=== PATIENT | female | born 1955 ===

== ENCOUNTER 2019-12-04 06:59 | Outpatient (REF) | payer OTHER, SELFPAY ==
[2019-12-04 11:10] LABS: MANUAL DIFF FLAG NO
[2019-12-04 11:44] LABS: Alanine Aminotransferase 15 U/L (0-31); Albumin Level 4.3 g/dL (3.5-5.0); Alkaline Phosphatase 60 U/L (39-117); Anion Gap 13 (12-20); Aspartate Amino Transferase 19 U/L (5-31); Bilirubin Total 0.6 mg/dL (0.0-1.0); Blood Urea Nitrogen 21 mg/dL (9-16); Carbon Dioxide 29 mmol/L (22-29); Chloride 105 mmol/L (96-108); Cholesterol 255 mg/dL; Estimated Glomerular Filt Rate > 60; Glucose Fasting 90 mg/dL (60-99); HDL Cholesterol 66 mg/dL; LDL Cholesterol Calculated 171 mg/dl; Potassium 4.6 mmol/l (3.3-5.1); Sodium 142 mmol/L (135-145); Total Protein 6.9 g/dL (6.5-8.0); Triglycerides 93 mg/dL
[2019-12-04 11:46] LABS: Basophils Absolute Auto 0.1 X10*3/uL (0.0-0.2); Basophils Percent Auto 1.3 % (0-2); Eosinophils Absolute Auto 0.1 X10*3/uL (0.0-0.4); Eosinophils Percent Auto 2.8 % (0-4); Hematocrit 42.6 % (37-47); Hemoglobin 13.5 g/dl (12.0-16.0); Imm Gran Abs Auto 0.01 X10*3/uL (0.00-0.03); Imm Gran Pct Auto 0.3 % (0.0-0.4); Lymphocytes Absolute Auto 1.7 X10*3/uL (1.2-4.9); Lymphocytes Percent Auto 41.3 % (20-40); Mean Corpuscular HGB Conc 31.7 g/dl (31.0-35.0); Mean Corpuscular Hemoglobin 30.1 pg (27.0-33.0); Mean Corpuscular Volume 94.9 fL (80-98); Mean Platelet Volume 12.3 fL (9.4-12.3); Monocytes Absolute Auto 0.4 X10*3/uL (0.1-1.2); Monocytes Percent Auto 10.3 % (2-11); Neutrophils Absolute Auto 1.8 X10*3/uL (2.0-8.3); Platelet Count 194 X10*3/uL (160-400); Red Blood Count 4.49 X10*6/uL (4.20-5.50); Red Cell Distribution Width 12.1 % (11.0-16.0)
[2019-12-06 04:32] LABS: SARS COV2 IgG Negative (Negative)
== END 2019-12-04 07:00 | disposition home or self-care (01) ==
LOC: HO.HMGCLDS 06:59
PROVIDERS: PCP Internal Medicine; Visit Provider Internal Medicine
DX: Z00.00 Encounter for general adult medical examination without abnormal findings (principal); E03.9 Hypothyroidism, unspecified; K58.9 Irritable bowel syndrome, unspecified; K21.9 Gastro-esophageal reflux disease without esophagitis
CPT/HCPCS: 36415; 80053; 80061; 85025; 86769

== ENCOUNTER 2020-03-27 08:47 | Emergency (ER) | payer OTHER, SELFPAY ==
--- NOTE | ~2020-03-27 | CT_ITS ---
EXAMINATION: CT HEAD WITHOUT CONTRAST CLINICAL INFORMATION: Headache, assess for hemorrhage. COMPARISON: None TECHNIQUE: Contiguous axial imaging was performed from the skull base to vertex without intravenous administration of contrast. Additional 2-D coronal and sagittal reformatted images are generated on the CT workstation and uploaded to PACS. This CT examination was performed using dose optimization techniques as appropriate, variously including the following: *Automated exposure control *Adjustment of mA and/or kV according to patient size (this includes techniques or standardized protocols for targeted exams where dose is matched to indication/reason for exam; i.e. extremities or head) *Use of iterative reconstruction technique DLP: 600 mGy-cm FINDINGS: There is no intracranial hemorrhage, hematoma, or extra-axial fluid collection. The ventricles are normal in size. There is no hydrocephalus, edema, or mass effect. The jhaveri-white matter differentiation appears symmetric. There is no visible acute territorial infarct or mass lesion. The calvarium appears intact. There is no pneumocephalus or orbital emphysema. The visualized sinuses and middle ears and mastoid air cells show no significant mucosal thickening. There are no air-fluid levels. CT/CT head/brain wo con IMPRESSION: No acute intracranial abnormality.
--- NOTE | ~2020-03-27 | XR_ITS ---
EXAMINATION: XR CHEST CLINICAL INFORMATION: Chest wall pain COMPARISON: None TECHNIQUE: Portable upright AP view of the chest was obtained. FINDINGS: The lungs are clear. The vascularity is normal. There is no pneumothorax or pleural reaction or effusion. The heart is normal in size. The hilar and mediastinal contours are unremarkable. There is dextrocurvature midthoracic spine. Otherwise, no visible bony abnormality. XR/XR chest 1V IMPRESSION: Unremarkable examination.
[2020-03-27 08:54] VITALS: BP 210/98; PULSE 76; RESP 18; TEMP 36.5; O2SAT 98; BMI 24.2
--- NOTE | 2020-03-27 09:01 | ED.GENADULT ---
HPI - General Adult General Chief complaint: General Medical Stated complaint: RAPID HEART BEAT Time Seen by Provider: 03/27/20 09:01 Source: patient Mode of arrival: ambulatory Limitations: no limitations History of Present Illness HPI narrative: 64-year-old female with below known past medical history including history of; Anxiety DJD (degenerative joint disease) GERD (gastroesophageal reflux disease) Hypothyroidism IBS (irritable bowel syndrome) Insomnia Mammogram normal Osteoarthritis of knee Postmenopausal bleeding Today, She presents ambulatory to the ER via triage with constellation of complaints states she has been having some increase irregular heart rate, some headache as well as left-sided chest pain at times over past several weeks during which time she has also had increase in her anxiety/?panic attacks? and yesterday while she was preparing food she feels like the right eye ?rolled over to the left corner? for several minutes and when she asked her son to take a look it had resolved. Given his symptoms she called her eye doctor who advised her to call her primary care doctor and she called the PCP office and spoke to the office staff there who advised her to come to the emergency room as she might be having a stroke.... or a heart attack . She denies any vision changes. States the event in her eye resolved yesterday does report she has increased and severe panic attacks about health. There is no fever, recent URI symptoms. Onset (ago): day(s) Pain Consistency: intermittent Relieving factors: none Exacerbating factors: none Treatments prior to arrival: none Related Data Home Medications Medication Instructions Recorded Confirmed levothyroxine 100 mcg tablet mcg PO 12/03/19 12/03/19 Previous Rx's Medication Instructions Recorded lorazepam 0.5 mg tablet 0.5 mg PO DAILY PRN #30 tab 12/06/19 Allergies Allergy/AdvReac Type Severity Reaction Status Date / Time No Known Allergies Allergy Verified 11/29/19 12:00 Review of Systems Review of Systems: Constitutional: No Weight loss, No Fever, No Chills, No Night Sweats, No Fatigue, No Malaise ENT/Mouth: No Hearing loss, No Ear Pain, No Nasal Congestion, No Sinus Pain, No Hoarseness, No sore throat, No Rhinorrhea, No Swallowing Difficulty Eyes: No Eye Pain, No Swelling, No Redness, No Foreign Body, No Discharge, No Vision Changes Cardiovascular: No Chest Pain, No SOB, No Dyspnea on Exertion, No Orthopnea, No Edema, No Palpitations Respiratory: No Cough, No Sputum, No Wheezing, No Smoke Exposure, No Dyspnea Gastrointestinal: No Nausea, No Vomiting, No Diarrhea, No Constipation, No abdominal Pain Genitourinary: no irregular bleeding, No Dysuria, No Urinary Frequency, No Hematuria, No Urinary Incontinence, No Urgency, No Flank Pain Musculoskeletal: No joint pain, No Myalgias, No Joint Swelling Skin: No Skin Lesions, No rash Neuro: No Weakness, No Numbness, + Paresthesias sometimes in the left side, No Loss of Consciousness, No Dizziness, + Headache Psych: + Anxiety/Panic, No Depression, No SI/HI/AH/VH, No Social Issues Heme/Lymph: No Bruising, No Bleeding,No Lymphadenopathy Endocrine: No Polyuria, No Polydipsia, No Temperature Intolerance Yes all other systems are reviewed and are negative [facility] Past Medical History Medical History (Updated 03/27/20 @ 14:24 by Rafael Berrios NP) Annual physical exam Anxiety DJD (degenerative joint disease) GERD (gastroesophageal reflux disease) Hypothyroidism IBS (irritable bowel syndrome) Insomnia Mammogram normal Osteoarthritis of knee Postmenopausal bleeding Surgical History (Updated 12/03/19 @ 12:37 by Maria Ines Estrada MD) Cervical polyp Fistula H/O colonoscopy History of breast biopsy Family History Family History (Updated 11/29/19 @ 12:07 by THELMA Davies, BLOCK GREASER) Father HTN (hypertension) Cancer Lung cancer Mother HTN (hypertension) CHF (congestive heart failure) Brother Cancer Brother No problems noted. Social History Social History (Updated 12/03/19 @ 12:07 by Dominique Nielsen BLOCK GREASER) Smoking Status: Never smoker Smoked in Last 30 Days: No Use of substances other than those prescribed or required for medical reasons: No Advance Directives: No Advance Directives Information Provided: No Physical Exam Vital Signs: Vital Signs: Last Vital Signs Temp 97.7 F 03/27/20 08:54 Pulse 63 03/27/20 12:04 Resp 14 03/27/20 12:04 BP 156/70 H 03/27/20 12:04 Pulse Ox 97 03/27/20 12:04 Body Mass Index 24.2 Reviewed Const: General: cooperative and anxious (Tapping her feet and her fingers); No acute distress or intoxicated appearing Nutritional Appearance: average body habitus Orientation/consciousness: patient oriented x3 HENMT: Head: Yes normal to inspection Ears: hearing grossly normal bilaterally Eyes: General: appearance normal, both eyes and all related structures Visual Holman: normal visual holman by confrontation Neck: Neck: Yes normal visual inspection, No positive Brudzinski's sign, No positive Kernig's sign and No tender Thyroid: Thyroid normal Chest: Chest palpation & inspection: normal inspection of the chest Resp: Effort & Inspection: normal respiratory effort Auscultation: clear to auscultation bilaterally Cardio: Jugular venous distension: no JVD Rhythm: regular rhythm Heart sounds: S1 normal heart sound present and S2 normal heart sound present GI: Inspection: Yes normal to inspection Percussion: Yes normal to percussion Auscultation: normal bowel sounds : General: Yes no CVA tenderness Back/Spine/Pelvis: Back: no CVA tenderness Skin: General skin exam: no rashes or lesions noted Neuro: General: patient oriented x3 Extrem: General: Yes normal to inspection NIH Stroke Scale Internal: Initial- Upon Arrival Level of Consciousness: Alert Level of Consciousness Questions: Answers both questions correctly Level of Consciousness Commands: Performs both tasks correctly Best Gaze: Normal Visual: No visual loss Facial Palsy: Normal Motor Arm (Right): No drift Motor Arm (Left): No drift Motor Leg (Right): No drift Motor Leg (Left): No drift Limb Ataxia: Absent Sensory: Normal Best Language: No aphasia Dysarthia: Normal Extinction and Inattention: No abnormality Score: 0 Course Course Course Narrative: No focal neurological findings multiple nonspecific symptoms does clinically appear very anxious. Workup overall reassuring. BP improved in the ED upon resting and recheck. Seems to be very focused on health also she was due for her COVID vaccine today and she states that she is very nervous about this and is unsure she should take it and this is causing her increased anxiety. Medical Decision Making Medical Records Medical records reviewed: Yes I reviewed the patient's medical records. Lab Data Result diagrams: 03/27/20 09:35 03/27/20 09:35 Labs: Lab Results 03/27/20 03/27/20 03/27/20 Range/Units 09:35 09:35 09:35 WBC 5.3 (4.8-10.8) X10*3/uL RBC 4.76 (4.20-5.50) X10*6/uL Hgb 14.1 (12.0-16.0) g/dl Hct 44.6 (37-47) % MCV 93.7 (80-98) fL MCH 29.6 (27.0-33.0) pg MCHC 31.6 (31.0-35.0) g/dl RDW 12.2 (11.0-16.0) % Plt Count 222 (160-400) X10*3/uL MPV 11.8 (9.4-12.3) fL Immature Gran % (Auto) 0.4 (0.0-0.4) % Neut % (Auto) 65.0 (45-73) % Lymph % (Auto) 24.3 (20-40) % Major % (Auto) 7.8 (2-11) % Eos % (Auto) 1.7 (0-4) % Baso % (Auto) 0.8 (0-2) % Lymph # (Auto) 1.3 (1.2-4.9) X10*3/uL Major # (Auto) 0.4 (0.1-1.2) X10*3/uL Eos # (Auto) 0.1 (0.0-0.4) X10*3/uL Baso # (Auto) 0.0 (0.0-0.2) X10*3/uL Abs Immat Gran (auto) 0.02 (0.00-0.03) X10*3/uL Absolute Neuts (auto) 3.4 (2.0-8.3) X10*3/uL Absolute Nucleated RBC 0.000 (0.0-0.012) X10*3/uL Nucleated RBC % (auto) 0.0 (0.0-0.2) /100WBC PT 11.2 (10.8-13.0) SEC INR 0.9 (0.9-1.1) APTT 32.4 (24.1-38.0) SEC Sodium 144 (135-145) mmol/L Potassium 4.9 (3.3-5.1) mmol/L Chloride 107 (96-108) mmol/L Carbon Dioxide 29 (22-29) mmol/L Anion Gap 13 (12-20) BUN 19 H (9-16) mg/dL Creatinine 0.77 (0.5-1.4) mg/dL Estim Creat Clear Calc 69.0 Estimated GFR > 60 Random Glucose 110 (60-115) mg/dL Calcium 9.5 (8.4-10.2) mg/dL Total Bilirubin 0.7 (0.0-1.0) mg/dL AST 17 (5-31) U/L ALT 18 (0-31) U/L Alkaline Phosphatase 66 (39-117) U/L Troponin I High Sens (<3.5-17.0) ng/L Total Protein 7.4 (6.5-8.0) g/dL Albumin 4.6 (3.5-5.0) g/dL TSH 1.29 (0.32-4.0) uIU/mL Urine Color Urine Appearance Urine pH (5.0-8.0) Ur Specific [place] (1.005-1.025) Urine Protein (NEG-TRACE) MG/DL Urine Glucose (UA) (NEG) MG/DL Urine Ketones (NEG) MG/DL Urine Blood (NEG) Urine Nitrite (NEG) Ur Leukocyte Esterase (NEG) Urine RBC (0) /HPF Urine WBC (0-4) /HPF Ur Squamous Epith Cells /LPF Urine Bacteria /LPF Urine Opiates Screen (Not Detect) Ur Barbiturates Screen (Not Detect) Ur Phencyclidine Scrn (Not Detect) Ur Amphetamines Screen (Not Detect) U Benzodiazepines Scrn (Not Detect) Urine Cocaine Screen (Not Detect) U Marijuana (THC) Screen (Not Detect) 03/27/20 03/27/20 03/27/20 Range/Units 09:35 09:35 09:36 WBC (4.8-10.8) X10*3/uL RBC (4.20-5.50) X10*6/uL Hgb (12.0-16.0) g/dl Hct (37-47) % MCV (80-98) fL MCH (27.0-33.0) pg MCHC (31.0-35.0) g/dl RDW (11.0-16.0) % Plt Count (160-400) X10*3/uL MPV (9.4-12.3) fL Immature Gran % (Auto) (0.0-0.4) % Neut % (Auto) (45-73) % Lymph % (Auto) (20-40) % Major % (Auto) (2-11) % Eos % (Auto) (0-4) % Baso % (Auto) (0-2) % Lymph # (Auto) (1.2-4.9) X10*3/uL Major # (Auto) (0.1-1.2) X10*3/uL Eos # (Auto) (0.0-0.4) X10*3/uL Baso # (Auto) (0.0-0.2) X10*3/uL Abs Immat Gran (auto) (0.00-0.03) X10*3/uL Absolute Neuts (auto) (2.0-8.3) X10*3/uL Absolute Nucleated RBC (0.0-0.012) X10*3/uL Nucleated RBC % (auto) (0.0-0.2) /100WBC PT (10.8-13.0) SEC INR (0.9-1.1) APTT (24.1-38.0) SEC Sodium (135-145) mmol/L Potassium (3.3-5.1) mmol/L Chloride (96-108) mmol/L Carbon Dioxide (22-29) mmol/L Anion Gap (12-20) BUN (9-16) mg/dL Creatinine (0.5-1.4) mg/dL Estim Creat Clear Calc Estimated GFR Random Glucose (60-115) mg/dL Calcium (8.4-10.2) mg/dL Total Bilirubin (0.0-1.0) mg/dL AST (5-31) U/L ALT (0-31) U/L Alkaline Phosphatase (39-117) U/L Troponin I High Sens 7.2 (<3.5-17.0) ng/L Total Protein (6.5-8.0) g/dL Albumin (3.5-5.0) g/dL TSH (0.32-4.0) uIU/mL Urine Color STRAW Urine Appearance CLEAR Urine pH 6.5 (5.0-8.0) Ur Specific [place] <= 1.005 (1.005-1.025) Urine Protein NEG (NEG-TRACE) MG/DL Urine Glucose (UA) NEG (NEG) MG/DL Urine Ketones NEG (NEG) MG/DL Urine Blood NEG (NEG) Urine Nitrite NEG (NEG) Ur Leukocyte Esterase NEG (NEG) Urine RBC 0 (0) /HPF Urine WBC 0-2 (0-4) /HPF Ur Squamous Epith Cells TRACE /LPF Urine Bacteria NONE /LPF Urine Opiates Screen Not Detected (Not Detect) Ur Barbiturates Screen Not Detected (Not Detect) Ur Phencyclidine Scrn Not Detected (Not Detect) Ur Amphetamines Screen Not Detected (Not Detect) U Benzodiazepines Scrn Not Detected (Not Detect) Urine Cocaine Screen Not Detected (Not Detect) U Marijuana (THC) Screen Not Detected (Not Detect) 03/27/20 Range/Units 12:08 WBC (4.8-10.8) X10*3/uL RBC (4.20-5.50) X10*6/uL Hgb (12.0-16.0) g/dl Hct (37-47) % MCV (80-98) fL MCH (27.0-33.0) pg MCHC (31.0-35.0) g/dl RDW (11.0-16.0) % Plt Count (160-400) X10*3/uL MPV (9.4-12.3) fL Immature Gran % (Auto) (0.0-0.4) % Neut % (Auto) (45-73) % Lymph % (Auto) (20-40) % Major % (Auto) (2-11) % Eos % (Auto) (0-4) % Baso % (Auto) (0-2) % Lymph # (Auto) (1.2-4.9) X10*3/uL Major # (Auto) (0.1-1.2) X10*3/uL Eos # (Auto) (0.0-0.4) X10*3/uL Baso # (Auto) (0.0-0.2) X10*3/uL Abs Immat Gran (auto) (0.00-0.03) X10*3/uL Absolute Neuts (auto) (2.0-8.3) X10*3/uL Absolute Nucleated RBC (0.0-0.012) X10*3/uL Nucleated RBC % (auto) (0.0-0.2) /100WBC PT (10.8-13.0) SEC INR (0.9-1.1) APTT (24.1-38.0) SEC Sodium (135-145) mmol/L Potassium (3.3-5.1) mmol/L Chloride (96-108) mmol/L Carbon Dioxide (22-29) mmol/L Anion Gap (12-20) BUN (9-16) mg/dL Creatinine (0.5-1.4) mg/dL Estim Creat Clear Calc Estimated GFR Random Glucose (60-115) mg/dL Calcium (8.4-10.2) mg/dL Total Bilirubin (0.0-1.0) mg/dL AST (5-31) U/L ALT (0-31) U/L Alkaline Phosphatase (39-117) U/L Troponin I High Sens 7.6 (<3.5-17.0) ng/L Total Protein (6.5-8.0) g/dL Albumin (3.5-5.0) g/dL TSH (0.32-4.0) uIU/mL Urine Color Urine Appearance Urine pH (5.0-8.0) Ur Specific [place] (1.005-1.025) Urine Protein (NEG-TRACE) MG/DL Urine Glucose (UA) (NEG) MG/DL Urine Ketones (NEG) MG/DL Urine Blood (NEG) Urine Nitrite (NEG) Ur Leukocyte Esterase (NEG) Urine RBC (0) /HPF Urine WBC (0-4) /HPF Ur Squamous Epith Cells /LPF Urine Bacteria /LPF Urine Opiates Screen (Not Detect) Ur Barbiturates Screen (Not Detect) Ur Phencyclidine Scrn (Not Detect) Ur Amphetamines Screen (Not Detect) U Benzodiazepines Scrn (Not Detect) Urine Cocaine Screen (Not Detect) U Marijuana (THC) Screen (Not Detect) Imaging Data Chest x-ray: Radiologist's impression: [address] [id number] ReportSigned Patient: Laura Hernández MMR#: [id number]: [id number]:[id number]/Sex: 64 / FADM Date: 03/27/20Loc: EDAttending Dr: Ordering Physician: Rafael Berrios NP Date of Service: 03/27/20 Procedure(s): XR chest 1V Accession Number(s): [id number] cc: Rafael Berrios [employer] STABIL[employer]ER OPERATOR~ EXAMINATION: XR CHEST CLINICAL INFORMATION: Chest wall pain COMPARISON: None TECHNIQUE: Portable upright AP view of the chest was obtained. FINDINGS: The lungs are clear. The vascularity is normal. There is no pneumothorax or pleural reaction or effusion. The heart is normal in size. The hilar and mediastinal contours are unremarkable. There is dextrocurvature midthoracic spine. Otherwise, no visible bony abnormality. XR/XR chest 1V IMPRESSION: Unremarkable examination. Dictated By:BOLIVAR HERNANDEZ MDSigned By:<Electronically signed by BOLIVAR HERNANDEZ MD in [place]>03/27/2052 DD/ TD/TT: Plow Mechanic: LILIAM CT scan - head: Radiologist's impression: [address] Scan ReportSigned Patient: Laura Hernández MMR#: [id number]: 1955cct:[id number]/Sex: 64 / FADM Date: 03/27/20Loc: EDAttending Dr: Ordering Physician: Rafael Berrios NP Date of Service: 03/27/20 Procedure(s): CT head/brain wo con Accession Number(s): [id number] cc: Rafael Berrios [employer] STABILIZER OPERATOR~ EXAMINATION: CT HEAD WITHOUT CONTRAST CLINICAL INFORMATION: Headache, assess for hemorrhage. COMPARISON: None TECHNIQUE: Contiguous axial imaging was performed from the skull base to vertex without intravenous administration of contrast. Additional 2-D coronal and sagittal reformatted images are generated on the CT workstation and uploaded to PACS. This CT examination was performed using dose optimization techniques as appropriate, variously including the following: *Automated exposure control *Adjustment of mA and/or kV according to patient size (this includes techniques or standardized protocols for targeted exams where dose is matched to indication/reason for exam; i.e. extremities or head) *Use of iterative reconstruction technique DLP: 600 mGy-cm FINDINGS: There is no intracranial hemorrhage, hematoma, or extra-axial fluid collection. The ventricles are normal in size. There is no hydrocephalus, edema, or mass effect. The jhaveri-white matter differentiation appears symmetric. There is no visible acute territorial infarct or mass lesion. The calvarium appears intact. There is no pneumocephalus or orbital emphysema. The visualized sinuses and middle ears and mastoid air cells show no significant mucosal thickening. There are no air-fluid levels. CT/CT head/brain wo con IMPRESSION: No acute intracranial abnormality. Dictated By:BOLIVAR HERNANDEZ MDSigned By:<Electronically signed by BOLIVAR HERNANDEZ MD in [place]>03/27/20 1337 DD/ 1129TD/TT: Plow Mechanic: LILIAM ECG Data Interpretation: Normal sinus rhythm Low voltage QRS Septal infarct , age undetermined Abnormal ECG No previous ECGs available Discharge Plan Discharge Clinical Impression: Atypical chest pain, Anxiety Patient Disposition: Home, Self-Care Instructions: Chest Pain (ED), Anxiety (ED) Additional Instructions: Home care instructions reviewed Follow up with her primary care doctor as discussed Return if any concerns or worsening symptoms Thank you Prescriptions: No Action lorazepam 0.5 mg tablet 0.5 mg PO DAILY PRN (Reason: anxiety) Qty: 30 RF: 0 levothyroxine 100 mcg tablet PO RF: 0 Referrals: Maria Ines Estrada MD [Primary Care Provider] - 3 days Interventions: ED Discharge Assessment Last Done: 03/27/20 14:37 Discharge Date/Time: 03/27/20 14:39
--- NOTE | 2020-03-27 09:15 | ECG_ITS ---
Test Reason : CHEST DISCOMFORT Blood Pressure : / mmHG Vent. Rate : 076 BPM Atrial Rate : 076 BPM P-R Int : 186 ms QRS Dur : 092 ms QT Int : 388 ms P-R-T Axes : 000 -04 084 degrees QTc Int : 436 ms Normal sinus rhythm Low voltage QRS Septal infarct , age undetermined Abnormal ECG No previous ECGs available Referred By: Rafael Berrios Electronically Signed By:EDDIE SPICER MD
[2020-03-27 09:41] LABS: MANUAL DIFF FLAG NO
[2020-03-27 09:44] LABS: Basophils Percent Auto 0.8 % (0-2); Eosinophils Absolute Auto 0.1 X10*3/uL (0.0-0.4); Eosinophils Percent Auto 1.7 % (0-4); Hematocrit 44.6 % (37-47); Hemoglobin 14.1 g/dl (12.0-16.0); Imm Gran Abs Auto 0.02 X10*3/uL (0.00-0.03); Imm Gran Pct Auto 0.4 % (0.0-0.4); Lymphocytes Absolute Auto 1.3 X10*3/uL (1.2-4.9); Lymphocytes Percent Auto 24.3 % (20-40); Mean Corpuscular HGB Conc 31.6 g/dl (31.0-35.0); Mean Corpuscular Hemoglobin 29.6 pg (27.0-33.0); Mean Corpuscular Volume 93.7 fL (80-98); Mean Platelet Volume 11.8 fL (9.4-12.3); Monocytes Absolute Auto 0.4 X10*3/uL (0.1-1.2); Monocytes Percent Auto 7.8 % (2-11); Neutrophils Absolute Auto 3.4 X10*3/uL (2.0-8.3); Platelet Count 222 X10*3/uL (160-400); Red Blood Count 4.76 X10*6/uL (4.20-5.50); Red Cell Distribution Width 12.2 % (11.0-16.0); White Blood Count 5.3 X10*3/uL (4.8-10.8)
[2020-03-27 09:46] LABS: Glucose Urine UA NEG (NEG); Leukocyte Esterase Urine NEG (NEG); Nitrite Urine NEG (NEG); PH 6.5 (5.0-8.0); Specific Gravity - Urine <= 1.005 (1.005-1.025); Urine Blood NEG (NEG); Urine Ketones NEG (NEG); Urine Protein NEG (NEG-TRACE)
[2020-03-27 09:48] LABS: Appearance Urine CLEAR; Color Urine STRAW
[2020-03-27 09:51] LABS: INTERNATIONAL NORM RATIO 0.9 (0.9-1.1); Prothrombin Time 11.2 SEC (10.8-13.0)
[2020-03-27 09:53] LABS: RBC Urine 0 /HPF (0); Squamous Epithelial Cell Urine TRACE /LPF; WBC Urine 0-2 /HPF (0-4)
[2020-03-27 09:54] LABS: Partial Thromboplastin Time 32.4 SEC (24.1-38.0)
[2020-03-27 10:12] LABS: Alanine Aminotransferase 18 U/L (0-31); Albumin Level 4.6 g/dL (3.5-5.0); Alkaline Phosphatase 66 U/L (39-117); Anion Gap 13 (12-20); Aspartate Amino Transferase 17 U/L (5-31); Bilirubin Total 0.7 mg/dL (0.0-1.0); Blood Urea Nitrogen 19 mg/dL (9-16); Calcium 9.5 mg/dL (8.4-10.2); Carbon Dioxide 29 mmol/L (22-29); Chloride 107 mmol/L (96-108); Estimated Glomerular Filt Rate > 60; Glucose Random 110 mg/dL (60-115); Potassium 4.9 mmol/L (3.3-5.1); Sodium 144 mmol/L (135-145); Total Protein 7.4 g/dL (6.5-8.0)
[2020-03-27 10:15] LABS: Troponin-I High Sensitivity 7.2 ng/L (<3.5-17.0)
[2020-03-27 10:29] LABS: Amphetamine Screen Urine Not Detected (Not Detect); Barbiturates, Urine Not Detected (Not Detect); Benzodiazepines Screen Urine Not Detected (Not Detect); Cannabinoid Screen Urine Not Detected (Not Detect); Cocaine Screen Urine Not Detected (Not Detect); Opiate Screen Urine Not Detected (Not Detect); Phencyclidine Screen Urine Not Detected (Not Detect)
[2020-03-27 10:32] LABS: Thyroid Stimulating Hormone 1.29 uIU/mL (0.32-4.0)
[2020-03-27 11:10] VITALS: BP 161/77; PULSE 59; RESP 12; O2SAT 97
[2020-03-27 12:04] VITALS: BP 156/70; PULSE 63; RESP 14; O2SAT 97
[2020-03-27 12:47] LABS: Troponin-I High Sensitivity 7.6 ng/L (<3.5-17.0)
== END 2020-03-27 14:39 | disposition home or self-care (01) ==
PROVIDERS: Nurse Practitioner Primary Care; Emergency Provider Internal Medicine; PCP Internal Medicine
DX: R07.89 Other chest pain (principal); R51.9 Headache, unspecified; F41.1 Generalized anxiety disorder; F43.0 Acute stress reaction; Z79.899 Other long term (current) drug therapy
CPT/HCPCS: 36415; 70450; 71045; 80053; 80307; 81001; 84443; 84484; 85025; 85610; 85730; 93005; 99284

== ENCOUNTER 2020-04-16 15:27 | Outpatient (REF) | payer OTHER, SELFPAY ==
--- NOTE | ~2020-04-16 | US_ITS ---
EXAMINATION: US EXTRACRANIAL CAROTID DUPLEX, BILATERAL CLINICAL INFORMATION: TIA COMPARISON: None TECHNIQUE: Real-time ultrasound and Doppler techniques (integrating B-mode 2-D vascular images, Doppler spectral analysis and color-flow Doppler imaging) were utilized to interrogate the extracranial carotid arteries, the vertebral arteries and proximal subclavian arteries bilaterally. The degree of stenosis is determined by criteria similar to NASCET. FINDINGS: Right Side: 1. There is no atherosclerotic plaque seen in the bifurcation/proximal ICA region. 2. The common carotid artery PSV proximally is 75 cm/s and distally 71 cm/s. 3. The proximal internal carotid artery velocities are 80 cm/s systolic and 28 cm/s diastolic. 4. The proximal external carotid artery PSV is 77 cm/s. 5. The vertebral artery shows antegrade flow. 6. The subclavian artery waveforms are normal. Left Side: 1. There is no atherosclerotic plaque seen in the bifurcation/proximal ICA region. 2. The common carotid artery PSV proximally is 90 cm/s and distally 81 cm/s. 3. The proximal internal carotid artery velocities are 79 cm/s systolic and 24 cm/s diastolic. 4. The proximal external carotid artery PSV is 80 cm/s. 5. The vertebral artery shows antegrade flow. 6. The subclavian artery waveforms are artery waveforms are normal. US/US carotid duplex BI IMPRESSION: 1. RIGHT: Normal exam. 2. LEFT: Normal exam.
== END 2020-04-16 15:28 | disposition home or self-care (01) ==
LOC: HO.HMGCX 15:27
PROVIDERS: PCP Internal Medicine; Visit Provider Internal Medicine
DX: G45.9 Transient cerebral ischemic attack, unspecified (principal)
CPT/HCPCS: 93880

== ENCOUNTER 2020-12-18 14:14 | Outpatient (REF) | payer OTHER, SELFPAY ==
[2020-12-18 18:11] LABS: Appearance Urine CLEAR; Color Urine YELLOW; Glucose Urine UA NEG (NEG); Leukocyte Esterase Urine NEG (NEG); Nitrite Urine NEG (NEG); PH 5.5 (5.0-8.0); Specific Gravity - Urine 1.015 (1.005-1.025); Urine Blood NEG (NEG); Urine Ketones NEG (NEG); Urine Protein NEG (NEG-TRACE)
== END 2020-12-18 14:15 | disposition home or self-care (01) ==
LOC: HO.HMGCLDS 14:14
PROVIDERS: PCP Internal Medicine; Visit Provider Internal Medicine
DX: R30.0 Dysuria (principal)
CPT/HCPCS: 81003

== ENCOUNTER 2021-10-07 09:45 | Outpatient (REF) | payer OTHER, SELFPAY ==
[2021-10-07 11:16] LABS: MANUAL DIFF FLAG NO
[2021-10-07 11:29] LABS: Basophils Absolute Auto 0.1 X10*3/uL (0.0-0.2); Basophils Percent Auto 1.7 % (0-2); Eosinophils Absolute Auto 0.2 X10*3/uL (0.0-0.4); Hematocrit 44.2 % (37.0-47.0); Imm Gran Abs Auto 0.01 X10*3/uL (0.00-0.03); Imm Gran Pct Auto 0.3 % (0.0-0.4); Lymphocytes Absolute Auto 1.7 X10*3/uL (1.2-4.9); Lymphocytes Percent Auto 46.6 % (20-40); Mean Corpuscular HGB Conc 31.7 g/dl (31.0-35.0); Mean Corpuscular Hemoglobin 29.6 pg (27.0-33.0); Mean Corpuscular Volume 93.4 fL (80.0-98.0); Mean Platelet Volume 12.5 fL (9.4-12.3); Monocytes Absolute Auto 0.4 X10*3/uL (0.1-1.2); Monocytes Percent Auto 10.2 % (2-11); Neutrophils Absolute Auto 1.3 x10*3/uL (2.0-8.3); Neutrophils Percent Auto 36.2 % (45-73); Platelet Count 205 X10*3/uL (160-400); Red Blood Count 4.73 X10*6/uL (4.20-5.50); Red Cell Distribution Width 12.3 % (11.0-16.0); White Blood Count 3.6 X10*3/uL (4.8-10.8)
[2021-10-07 12:21] LABS: Alanine Aminotransferase 17 U/L (0-31); Albumin Level 4.3 g/dL (3.5-5.0); Alkaline Phosphatase 65 U/L (39-117); Anion Gap 12 (12-20); Aspartate Amino Transferase 21 U/L (5-31); Bilirubin Total 0.7 mg/dL (0.0-1.0); Blood Urea Nitrogen 19 mg/dL (9-16); Calcium 9.2 mg/dL (8.4-10.2); Carbon Dioxide 28 mmol/L (22-29); Chloride 106 mmol/L (96-108); Cholesterol 280 mg/dL; Estimated Glomerular Filt Rate > 60; Glucose Fasting 90 mg/dL (60-99); HDL Cholesterol 61 mg/dL; LDL Cholesterol Calculated 198 mg/dl; Sodium 141 mmol/L (135-145); Total Protein 7.2 g/dL (6.5-8.0); Triglycerides 106 mg/dL
[2021-10-07 12:24] LABS: Vitamin D 25-OH Total 15.6 ng/mL (>30)
[2021-10-07 12:29] LABS: Folate 11.5 ng/mL (> or = 4.0); Vitamin B12 259 pg/mL (200-900)
== END 2021-10-07 09:46 | disposition home or self-care (01) ==
LOC: HO.HMGCLDS 09:45
PROVIDERS: PCP Internal Medicine; Visit Provider Internal Medicine
DX: Z00.00 Encounter for general adult medical examination without abnormal findings (principal); E55.9 Vitamin D deficiency, unspecified; E78.5 Hyperlipidemia, unspecified; E03.9 Hypothyroidism, unspecified
CPT/HCPCS: 36415; 80053; 80061; 82306; 82607; 82746; 85025

== ENCOUNTER 2022-04-22 12:54 | Outpatient (REF) | payer OTHER, SELFPAY ==
[2022-04-22 14:06] LABS: MANUAL DIFF FLAG NO
[2022-04-22 14:10] LABS: Basophils Percent Auto 0.4 % (0-2); Eosinophils Percent Auto 0.4 % (0-4); Hematocrit 43.3 % (37.0-47.0); Hemoglobin 13.9 g/dl (12.0-16.0); Imm Gran Abs Auto 0.01 X10*3/uL (0.00-0.03); Imm Gran Pct Auto 0.4 % (0.0-0.4); Lymphocytes Absolute Auto 0.9 X10*3/uL (1.2-4.9); Lymphocytes Percent Auto 32.9 % (20-40); Mean Corpuscular HGB Conc 32.1 g/dl (31.0-35.0); Mean Corpuscular Hemoglobin 29.9 pg (27.0-33.0); Mean Corpuscular Volume 93.1 fL (80.0-98.0); Monocytes Absolute Auto 0.3 X10*3/uL (0.1-1.2); Neutrophils Absolute Auto 1.6 x10*3/uL (2.0-8.3); Neutrophils Percent Auto 56.9 % (45-73); Platelet Count 190 X10*3/uL (160-400); Red Blood Count 4.65 X10*6/uL (4.20-5.50); Red Cell Distribution Width 12.3 % (11.0-16.0); White Blood Count 2.8 X10*3/uL (4.8-10.8)
[2022-04-22 15:09] LABS: Alanine Aminotransferase 29 U/L (0-31); Albumin Level 4.2 g/dL (3.5-5.0); Alkaline Phosphatase 67 U/L (39-117); Anion Gap 11 (12-20); Aspartate Amino Transferase 26 U/L (5-31); Blood Urea Nitrogen 18 mg/dL (9-16); Calcium 8.7 mg/dL (8.4-10.2); Carbon Dioxide 29 mmol/L (22-29); Chloride 103 mmol/L (96-108); Cholesterol 144 mg/dL; Estimated Glomerular Filt Rate > 60; Glucose Fasting 91 mg/dL (60-99); HDL Cholesterol 52 mg/dL; LDL Cholesterol Calculated 78 mg/dl; Potassium 4.2 mmol/L (3.3-5.1); Sodium 139 mmol/L (135-145); Total Protein 6.6 g/dL (6.5-8.0); Triglycerides 70 mg/dL
== END 2022-04-22 12:55 | disposition home or self-care (01) ==
LOC: HO.HMGCLDS 12:54
PROVIDERS: PCP Internal Medicine; Visit Provider Internal Medicine
DX: E03.9 Hypothyroidism, unspecified (principal); E78.5 Hyperlipidemia, unspecified
CPT/HCPCS: 36415; 80053; 80061; 85025

== ENCOUNTER 2022-07-07 11:41 | Outpatient (REF) | payer OTHER, SELFPAY ==
[2022-07-07 14:34] LABS: Baso%MD 1.2 %; Eos%MD 2.6 %; Hemoglobin 13.6 g/dl (12.0-16.0); IG%MD 0.2 %; Lymph%MD 39.9 %; Mean Corpuscular HGB Conc 31.6 g/dl (31.0-35.0); Mean Corpuscular Hemoglobin 29.8 pg (27.0-33.0); Mean Corpuscular Volume 94.3 fL (80.0-98.0); Mean Platelet Volume 11.9 fL (9.4-12.3); Mono%MD 12.7 %; Neut%MD 43.4 %; Platelet Count 224 X10*3/uL (160-400); Red Blood Count 4.56 X10*6/uL (4.20-5.50); Red Cell Distribution Width 12.3 % (11.0-16.0); White Blood Count 4.3 X10*3/uL (4.8-10.8)
[2022-07-07 14:45] LABS: B Type Natriuretic Peptide 49 pg/mL (<100)
[2022-07-07 14:54] LABS: Alanine Aminotransferase 24 U/L (0-31); Albumin Level 4.5 g/dL (3.5-5.0); Alkaline Phosphatase 87 U/L (39-117); Anion Gap 12 (12-20); Aspartate Amino Transferase 21 U/L (5-31); Bilirubin Total 0.7 mg/dL (0.0-1.0); Blood Urea Nitrogen 16 mg/dL (9-16); Calcium 9.6 mg/dL (8.4-10.2); Carbon Dioxide 29 mmol/L (22-29); Chloride 107 mmol/L (96-108); Estimated Glomerular Filt Rate > 60; Glucose Random 86 mg/dL (60-115); Potassium 4.6 mmol/L (3.3-5.1); Sodium 143 mmol/L (135-145); Total Protein 7.2 g/dL (6.5-8.0)
[2022-07-07 15:46] LABS: Basophils Abs Manual 0.1 X10*3/uL (0.0-0.2); Basophils Percent Manual 2 % (0-2); Eosinophils Absolute Manual 0.1 X10*3/uL (0.0-0.4); Eosinophils Percent Manual 3 % (0-4); Lymphocytes Absolute Manual 1.4 X10*3/uL (1.2-4.9); Lymphocytes Percent Manual 32 % (20-40); Monocytes Absolute Manual 0.3 X10*3/uL (0.1-1.2); Monocytes Percent Manual 6 % (2-11); Neutrophils Percent Manual 57 % (45-73)
[2022-07-07 15:48] LABS: Ovalocytes 1+ (5-14) /OIF; RBC Morphology NOTED
[2022-07-07 15:49] LABS: Acanthocytes 1+ (0-2) /OIF
[2022-07-07 15:50] LABS: Platelet Estimate NORMAL (NORMAL); Platelet Morphology Comment NORMAL
[2022-07-07 15:51] LABS: Band Neutrophils Percent 0 % (3-5); Neutrophils Absolute Manual 2.5 X10*3/uL (2.0-8.3)
== END 2022-07-07 11:42 | disposition home or self-care (01) ==
LOC: HO.HMGCLDS 11:41
PROVIDERS: PCP Internal Medicine; Visit Provider Internal Medicine
DX: R60.9 Edema, unspecified (principal); D70.9 Neutropenia, unspecified
CPT/HCPCS: 36415; 80053; 83880; 85007; 85027

== ENCOUNTER 2022-09-06 06:34 | Outpatient (REF) | payer OTHER, SELFPAY ==
[2022-09-06 12:08] LABS: Anion Gap 10 (12-20); Blood Urea Nitrogen 22 mg/dL (9-16); Calcium 9.5 mg/dL (8.4-10.2); Carbon Dioxide 30 mmol/L (22-29); Chloride 105 mmol/L (96-108); Estimated Glomerular Filt Rate > 60; Glucose Random 97 mg/dL (60-115); Potassium 4.4 mmol/L (3.3-5.1); Sodium 141 mmol/L (135-145)
== END 2022-09-06 06:35 | disposition home or self-care (01) ==
LOC: HO.HMGCLDS 06:34
PROVIDERS: PCP Internal Medicine; Visit Provider Internal Medicine
DX: R60.9 Edema, unspecified (principal)
CPT/HCPCS: 36415; 80048

== ENCOUNTER 2022-10-21 08:30 | Outpatient (REF) | payer OTHER, SELFPAY ==
[2022-10-21 11:57] LABS: Alanine Aminotransferase 19 U/L (0-31); Albumin Level 4.2 g/dL (3.5-5.0); Alkaline Phosphatase 60 U/L (39-117); Anion Gap 10 (12-20); Aspartate Amino Transferase 20 U/L (5-31); Bilirubin Total 0.4 mg/dL (0.0-1.0); Blood Urea Nitrogen 16 mg/dL (9-16); Calcium 9.7 mg/dL (8.4-10.2); Carbon Dioxide 30 mmol/L (22-29); Chloride 106 mmol/L (96-108); Cholesterol 181 mg/dL (<200); Estimated Glomerular Filt Rate > 60; Glucose Fasting 101 mg/dL (60-99); HDL Cholesterol 54 mg/dL (>40); LDL Cholesterol Calculated 107 mg/dL (<100); Potassium 3.9 mmol/L (3.3-5.1); Sodium 142 mmol/L (135-145); Triglycerides 101 mg/dL (<150)
== END 2022-10-21 08:31 | disposition home or self-care (01) ==
LOC: HO.HMGCLDS 08:30
PROVIDERS: PCP Internal Medicine; Visit Provider Internal Medicine
DX: I10 Essential (primary) hypertension (principal); E78.5 Hyperlipidemia, unspecified
CPT/HCPCS: 36415; 80053; 80061

== ENCOUNTER 2022-10-28 11:57 | Outpatient (AMB) | payer OTHER, SELFPAY ==
--- NOTE | 2022-10-28 12:02 | A.OFFPC_ITS ---
Vital Signs 10/28/22 12:04 Height 5 ft 6 in Weight 154 lb BMI 24.9 BP 110/76 Blood Pressure Location Lt brachial Position Sitting Pulse 55 Pulse Source Pulse Oximeter Pulse Oximetry (%) 98 Oxygen Delivery Method Room Air Intake Visit Reasons: Annual PE Intake Note: Last PAP: 2022-[facility] Last Mammo: [facility] Allergies No Known Allergies Allergy (Verified 10/28/22 12:05) Medication List - Last Reconciled 10/28/22 by Maria Ines Estrada MD amlodipine 2.5 mg PO DAILY amlodipine 5 mg PO DAILY atorvastatin 20 mg PO DAILY hydrochlorothiazide 12.5 mg PO DAILY levothyroxine 100 mcg PO DAILY Tobacco use date assessed: 07/07/22 Fall risk assessment: No Falls in past year Last assessed Fall Risk: 10/28/22 Dental Screening Dental Screen Date: 10/28/22 Did you have a dental visit in the last 12 months?: Yes Did you have a dental problem in the last 6 months where you did not have access to dental care?: No Was dental information given to patient?: Patient has dentist HPI Annual PE HPI Details Pt presents for PE. Hypertension hyperlipidemia are controlled on current medications. [facility] Medical History (Updated 10/28/22 @ 12:53 by Maria Ines Estrada MD) Syncope Palpitations Knee pain, left Hyperlipidemia TIA (transient ischemic attack) GERD (gastroesophageal reflux disease) Mammogram normal Annual physical exam Postmenopausal bleeding Osteoarthritis of knee DJD (degenerative joint disease) IBS (irritable bowel syndrome) Insomnia Anxiety Hypothyroidism Surgical History (Updated 10/28/22 @ 12:39 by Maria Ines Estrada MD) H/O colonoscopy Cervical polyp History of breast biopsy Fistula Family History Father HTN (hypertension) Cancer Lung cancer Mother HTN (hypertension) CHF (congestive heart failure) Brother Cancer Brother No problems noted. Social History Housing: House Patient Tobacco Use Status: Former Tobacco user (1 year ago) e-Cigarette/Vaping Use: Former Use Current occupational status: employed Cognitive needs: No Hearing needs: No Vision needs: No Questionnaire Thrive Questionnaire Date Thrive assessed: 07/07/22 AUDIT C Alcohol Use Questionnaire (AUDIT-C) 1. How often do you have a drink containing alcohol?: 4 or more times a week 2. How many drinks containing alcohol do you have on a typical day when you are drinking?: 1 or 2 3. How often do you have six or more drinks on one occasion?: Never Total Score: 4 Score Reviewed/Action Taken: Yes TELMA-7 AMB Questionnaire TELMA-7 Date TELMA - 7 assessed: 07/07/22 Source: Developed by Drs. Leonardo Medina, Sangita Chin, Zachary Benavides and colleagues, with an educational brice from [employer]. Review of Systems Const All systems reviewed & are unremarkable except as noted in HPI and below Reports no additional complaints Eyes Reports no additional complaints ENT Reports no additional complaints Card Reports no additional complaints Resp Reports no additional complaints GI Reports no additional complaints Reports no additional complaints Physical exam (Primary Care) Vital Signs: Last Vital Signs Pulse 55 10/28/22 12:04 BP 110/76 10/28/22 12:04 Pulse Ox 98 10/28/22 12:04 Oxygen Delivery Method Room Air 10/28/22 12:04 BMI result Body Mass Index 24.9 Tobacco/Smoking Status: Tobacco use Status Tobacco use date assessed 07/07/22 10/28/22 12:09 Patient Tobacco Use Status Former Tobacco user (1 year 10/28/22 12:09 ago) e-Cigarette/Vaping Use Former Use 10/28/22 12:09 Thrive Assessment: Date of Thrive Assessment Date Thrive assessed 07/07/22 10/28/22 12:09 Const General: no acute distress HENMT Head: Yes normal to inspection Ears: hearing grossly normal bilaterally Face and sinus: Yes normal facial exam Mouth: Normal oral and palatal mucosa present Throat: Yes posterior oropharynx normal Eyes General: appearance normal, both eyes and all related structures Neck Neck: Yes no lymphadenopathy and Yes supple Resp Effort & Inspection: normal respiratory effort Auscultation: clear to auscultation bilaterally Cardio Rhythm: regular rhythm Heart sounds: S1 normal heart sound present and S2 normal heart sound present GI Inspection: Yes normal to inspection Palpation (GI): Soft to palpation Percussion: Yes normal to percussion Auscultation: normal bowel sounds Extrem General: Yes no clubbing, cyanosis or edema Assessment and Plan Assessment & Plan (1) HTN (hypertension): Code(s): I10 - Essential (primary) hypertension Plan: Continue current medications (2) Syncope: Comment: admitted to [facility] 01/05, f/u PVD, Dr. Valero, Holter for 30 DAYS negative cardiac workup Code(s): R55 - Syncope and collapse (3) Anxiety: Code(s): F41.9 - Anxiety disorder, unspecified Plan: Stress management discussed with the patient (4) Hypothyroidism: Comment: f/u Dr. Espino Code(s): E03.9 - Hypothyroidism, unspecified Plan: Continue levothyroxine follow-up with endocrinology (5) Annual physical exam: Code(s): Z00.00 - Encounter for general adult medical examination without abnormal findings Plan: Well-balanced at regular physical activity discussed with the patient. Follow- up in 6 months with a fasting labs before Orders: Orders UA w Microscopic Today I10 - Essential (primary) hypertension Complete Blood Count Auto Diff 6 Months E03.9 - Hypothyroidism, unspecified, E78.5 - Hyperlipidemia, unspecified, I10 - Essential (primary) hypertension Comprehensive [place]. Panel Fast 6 Months E03.9 - Hypothyroidism, unspecified, E78.5 - Hyperlipidemia, unspecified, I10 - Essential (primary) hypertension Lipid Panel 6 Months E03.9 - Hypothyroidism, unspecified, E78.5 - Hyperlipidemia, unspecified, I10 - Essential (primary) hypertension Medications: Changed From atorvastatin 20 mg PO DAILY 90 tabs 3RF To atorvastatin 10 mg (1/2 x 20 mg) PO DAILY 90 tabs 3RF Coding Level of Care Code Est Pt Prev Care >65y(91355) Diagnoses HTN (hypertension) I10 Syncope R55 Anxiety F41.9 Hypothyroidism E03.9 Annual physical exam Z00.00
[2022-10-28 12:04] VITALS: BP 110/76; PULSE 55; O2SAT 98; BMI 24.9
== END 2022-10-28 12:53 | disposition home or self-care (01) ==
PROVIDERS: Visit Provider Internal Medicine
DX: Z00.00 Encounter for general adult medical examination without abnormal findings (principal); I10 Essential (primary) hypertension; F41.9 Anxiety disorder, unspecified; E03.9 Hypothyroidism, unspecified; R55 Syncope and collapse
CPT/HCPCS: 99397

== ENCOUNTER 2023-03-17 15:48 | Outpatient (AMB) | payer OTHER, SELFPAY ==
[2023-03-17 15:57] VITALS: BP 140/80; PULSE 64; TEMP 36.6; O2SAT 97; BMI 25.3
--- NOTE | 2023-03-17 15:57 | MHC.OFFWIV ---
Intake Vital Signs 03/17/23 15:57 Height 5 ft 6 in Weight 157 lb BMI 25.3 BP 140/80 H Blood Pressure Location Lt brachial Position Sitting Pulse 64 Pulse Source Pulse Oximeter Temp 97.8 F Temp Source Temporal Artery Scan Pulse Oximetry (%) 97 Oxygen Delivery Method Room Air Intake Visit Reasons: EST/Right ankle pain (lobby) Intake Note: pt is here today for rt ankle pain started 03/05 Patient Tobacco Use Status: Former Tobacco user (1 year ago) Allergies No Known Allergies Allergy (Verified 03/17/23 16:03) Medication List - Last Reconciled 03/17/23 by Millicent Govea, SHAYE amlodipine 2.5 mg PO DAILY atorvastatin 10 mg PO DAILY hydrochlorothiazide 12.5 mg PO DAILY levothyroxine 100 mcg PO DAILY [medical alert device with fall detection and GPS As directed] Do you need a note to return to daycare/school/sports/work: Yes HPI HPI Comments History of Present Illness Details 67 y/o female presents to walk in clinic with c/o right ankle pain. PFSH Medical History (Updated 10/28/22 @ 12:53 by Maria Ines Estrada MD) Syncope Palpitations Knee pain, left Hyperlipidemia TIA (transient ischemic attack) GERD (gastroesophageal reflux disease) Mammogram normal Annual physical exam Postmenopausal bleeding Osteoarthritis of knee DJD (degenerative joint disease) IBS (irritable bowel syndrome) Insomnia Anxiety Hypothyroidism Surgical History (Updated 10/28/22 @ 12:39 by Maria Ines Estrada MD) H/O colonoscopy Cervical polyp History of breast biopsy Fistula Family History Father HTN (hypertension) Cancer Lung cancer Mother HTN (hypertension) CHF (congestive heart failure) Brother Cancer Brother No problems noted. Social History Housing: House Patient Tobacco Use Status: Former Tobacco user (1 year ago) e-Cigarette/Vaping Use: Former Use Current occupational status: employed Cognitive needs: No Hearing needs: No Vision needs: No Review of Systems Const All systems reviewed & are unremarkable except as noted in HPI and below Physical Exam Vital Signs: Last Vital Signs Temp 97.8 F 03/17/23 15:57 Pulse 64 03/17/23 15:57 BP 140/80 H 03/17/23 15:57 Pulse Ox 97 03/17/23 15:57 Oxygen Delivery Method Room Air 03/17/23 15:57 BMI result Body Mass Index 25.3 Const Orientation/consciousness: patient oriented x3 Neuro General: patient oriented x3 Cranial nerves: Yes CN's II-XII intact bilaterally Gait exam (Neuro): Normal gait present Motor exam (neuro): 5/5 motor strength present throughout Extrem General: Yes full ROM, Yes normal gait and Yes edema Right lower extremity: full ROM and ankle Details: tenderness, swelling and normal ROM; no crepitus; no cyanosis Left lower extremity: ankle Details: normal to inspection Assessment & Plan Assessment & Plan (1) Ankle pain, right: Code(s): M25.571 - Pain in right ankle and joints of right foot Qualifiers: Chronicity: acute Qualified Code(s): M25.571 - Pain in right ankle and joints of right foot Plan: - RICE - Xray Ankle - Naproxen for pain. Plan - RICE - Xray Ankle - Naproxen for pain. Orders: Orders XR ankle RT 2V Today M25.571 - Pain in right ankle and joints of right foot Coding Level of Care Code Est Pt Level 3 (90217) Diagnoses Acute right ankle pain M25.571 Chronicity: acute Time Spent (min) 15
== END 2023-03-17 17:12 | disposition home or self-care (01) ==
PROVIDERS: PCP Internal Medicine; Visit Provider Nurse Practitioner Family
DX: M25.571 Pain in right ankle and joints of right foot (principal)
CPT/HCPCS: 99213

== ENCOUNTER 2023-03-17 16:23 | Outpatient (REF) | payer OTHER, SELFPAY ==
--- NOTE | ~2023-03-17 | XR_ITS ---
EXAMINATION: XR ANKLE, RIGHT CLINICAL INFORMATION: Pain right ankle and joint right foot. COMPARISON: None available. TECHNIQUE: AP, lateral, and mortise views of the right ankle. FINDINGS: There is lateral malleolar soft tissue swelling. No visible acute fracture or dislocation seen. Ankle mortise and subtalar joints are normal. XR/XR ankle RT 2V IMPRESSION: Mild lateral malleolar soft tissue swelling. No visible acute fracture or dislocation seen.
== END 2023-03-17 16:24 | disposition home or self-care (01) ==
LOC: HO.HMGCX 16:23
PROVIDERS: PCP Internal Medicine; Visit Provider Nurse Practitioner Family
DX: M25.571 Pain in right ankle and joints of right foot (principal)
CPT/HCPCS: 73600

== ENCOUNTER 2023-03-30 14:17 | Outpatient (AMB) | payer OTHER, SELFPAY ==
[2023-03-30 14:18] VITALS: BP 126/74; PULSE 56; O2SAT 100; BMI 24.7
--- NOTE | 2023-03-30 14:18 | MHC.PC.OV ---
Vital Signs 03/30/23 14:18 Height 5 ft 6 in Weight 153 lb BMI 24.7 BP 126/74 Blood Pressure Location Lt brachial Position Sitting Pulse 56 Pulse Source Pulse Oximeter Pulse Oximetry (%) 100 Oxygen Delivery Method Room Air Intake Visit Reasons: Dizziness, post COVID/fall Intake Note: Pt is here today for a follow up visit after post Covid. Pt states that she passed out fell and hit her head on 03/05/23. Allergies No Known Allergies Allergy (Verified 03/30/23 14:22) Medication List - Last Reconciled 03/30/23 by Maria Ines Estrada MD amlodipine 2.5 mg PO DAILY atorvastatin 10 mg PO DAILY hydrochlorothiazide 12.5 mg PO DAILY levothyroxine 100 mcg PO DAILY meclizine 25 mg PO BID PRN [medical alert device with fall detection and GPS As directed] Tobacco use date assessed: 03/30/23 Fall risk assessment: 2 + Falls in past year Last assessed Fall Risk: 03/30/23 Dental Screening Dental Screen Date: 03/30/23 Did you have a dental visit in the last 12 months?: Yes Did you have a dental problem in the last 6 months where you did not have access to dental care?: No Was dental information given to patient?: Patient has dentist HPI Dizziness, post COVID/fall HPI Details Pt c/o persistent for 2 weeks dizziness, spinning sensation when lying on the left side, nausea, no vomiting, JAIMES in the occipital region after fall in about 3 weeks ago. Patient complains of persistent R ankle pain when walking after a fall. She thinks she twisted the ankle. She was seen in urgent care and had negative x-rays. Patient denies weakness or numbness in extremities, diplopia change in balance. Hypertension is controlled on current medications. [facility] Medical History (Updated 03/30/23 @ 14:59 by Maria Ines Estrada MD) Syncope Palpitations Knee pain, left Hyperlipidemia TIA (transient ischemic attack) GERD (gastroesophageal reflux disease) Mammogram normal Annual physical exam Postmenopausal bleeding Osteoarthritis of knee DJD (degenerative joint disease) IBS (irritable bowel syndrome) Insomnia Anxiety Hypothyroidism Surgical History (Updated 10/28/22 @ 12:39 by Maria Ines Estrada MD) H/O colonoscopy Cervical polyp History of breast biopsy Fistula Family History Father HTN (hypertension) Cancer Lung cancer Mother HTN (hypertension) CHF (congestive heart failure) Brother Cancer Brother No problems noted. Social History Housing: House Patient Tobacco Use Status: Former Tobacco user (1 year ago) e-Cigarette/Vaping Use: Former Use Current occupational status: employed Cognitive needs: No Hearing needs: No Vision needs: No Questionnaire Thrive Questionnaire Date Thrive assessed: 07/07/22 TELMA-7 AMB Questionnaire TELMA-7 Date TELMA - 7 assessed: 07/07/22 Source: Developed by Drs. Leonardo Medina, Sangita Chin, Zachary Benavides and colleagues, with an educational brice from [employer]. Review of Systems Const All systems reviewed & are unremarkable except as noted in HPI and below Reports no additional complaints Eyes Reports no additional complaints ENT Reports no additional complaints Card Reports no additional complaints Resp Reports no additional complaints GI Reports no additional complaints Reports no additional complaints Neuro Reports Abnormal speech present Physical exam (Primary Care) Vital Signs: Last Vital Signs Pulse 56 03/30/23 14:18 BP 126/74 03/30/23 14:18 Pulse Ox 100 03/30/23 14:18 Oxygen Delivery Method Room Air 03/30/23 14:18 BMI result Body Mass Index 24.7 Tobacco/Smoking Status: Tobacco use Status Tobacco use date assessed 03/30/23 03/30/23 14:25 Patient Tobacco Use Status Former Tobacco user (1 year 03/30/23 14:25 ago) e-Cigarette/Vaping Use Former Use 03/30/23 14:25 Thrive Assessment: Date of Thrive Assessment Date Thrive assessed 07/07/22 03/30/23 14:25 Const General: no acute distress HENMT Head: Yes normal to inspection Ears: hearing grossly normal bilaterally General nose exam: Normal external nose present Face and sinus: Yes normal facial exam Mouth: Normal oral and palatal mucosa present Throat: Yes posterior oropharynx normal Eyes General: appearance normal, both eyes and all related structures Neck Neck: Yes no lymphadenopathy and Yes supple Resp Effort & Inspection: normal respiratory effort Auscultation: clear to auscultation bilaterally Cardio Rhythm: regular rhythm Heart sounds: S1 normal heart sound present and S2 normal heart sound present GI Inspection: Yes normal to inspection Neuro Cranial nerves: Yes CN's II-XII intact bilaterally Speech: Abnormal speech present Motor exam (neuro): 5/5 motor strength present throughout Romberg Test: Negative Extrem Other: slight tenderness over lateral aspect of right ankle , slightly decreased range of motion, no joint erythema or warmth General: Yes no clubbing, cyanosis or edema Assessment and Plan Assessment & Plan (1) Right ankle sprain: Code(s): S93.401A - Sprain of unspecified ligament of right ankle, initial encounter Plan: Patient will schedule physical therapy at [facility] (2) Hypothyroidism: Comment: f/u Dr. Espino Code(s): E03.9 - Hypothyroidism, unspecified (3) HTN (hypertension): Code(s): I10 - Essential (primary) hypertension Plan: Continue current medications check basic metabolic panel (4) Vertigo: Code(s): R42 - Dizziness and giddiness Plan: Try meclizine prn, if symptoms persist she will be referred to vestibular therapy Orders: Orders Basic Metabolic Panel Today E03.9 - Hypothyroidism, unspecified, I10 - Essential (primary) hypertension Complete Blood Count Auto Diff Today E03.9 - Hypothyroidism, unspecified, I10 - Essential (primary) hypertension Lipid Panel Today E03.9 - Hypothyroidism, unspecified, I10 - Essential (primary) hypertension PT Evaluation and Treatment Today E03.9 - Hypothyroidism, unspecified, I10 - Essential (primary) hypertension, S93.401A - Sprain of unspecified ligament of right ankle, initial encounter Medications: New meclizine 25 mg PO BID PRN 30 tabs 0RF dizziness Coding Level of Care Code Est Pt Level 4 (37726) Diagnoses Right ankle sprain S93.401A Hypothyroidism E03.9 HTN (hypertension) I10 Vertigo R42
== END 2023-03-30 15:01 | disposition home or self-care (01) ==
PROVIDERS: PCP Internal Medicine; Visit Provider Internal Medicine
DX: S93.401A Sprain of unspecified ligament of right ankle, initial encounter (principal); E03.9 Hypothyroidism, unspecified; I10 Essential (primary) hypertension; R42 Dizziness and giddiness
CPT/HCPCS: 99214

== ENCOUNTER 2023-03-31 10:15 | Outpatient (REF) | payer OTHER, SELFPAY ==
[2023-03-31 13:04] LABS: MANUAL DIFF FLAG NO
[2023-03-31 13:20] LABS: Appearance Urine Clear; Color Urine Yellow; Glucose Urine UA Negative (Negative); Leukocyte Esterase Urine Trace (Negative); Nitrite Urine Negative (Negative); PH 6.5 (5.0-9.0); Specific Gravity - Urine 1.015 (1.005-1.025); UMIC TRIGGER UA YES; Urine Blood Negative (Negative); Urine Ketones Negative (Negative); Urine Protein Negative (Neg-Trace)
[2023-03-31 13:25] LABS: Bacteria Urine None Seen (None Seen); Hyaline Casts Urine 0-2 /LPF (0-2); RBC Urine 0-2 /HPF (0-2); Squamous Epithelial Cell Urine 0-2 /HPF (0-2); WBC Urine 0-5 /HPF (0-5)
[2023-03-31 13:29] LABS: Basophils Percent Auto 1.1 % (0-2); Eosinophils Absolute Auto 0.1 X10*3/uL (0.0-0.4); Eosinophils Percent Auto 3.5 % (0-4); Hematocrit 43.1 % (37.0-47.0); Hemoglobin 13.5 g/dl (12.0-16.0); Imm Gran Abs Auto 0.01 X10*3/uL (0.00-0.03); Imm Gran Pct Auto 0.3 % (0.0-0.4); Lymphocytes Absolute Auto 1.6 X10*3/uL (1.2-4.9); Lymphocytes Percent Auto 44.4 % (20-40); Mean Corpuscular HGB Conc 31.3 g/dl (31.0-35.0); Mean Corpuscular Hemoglobin 29.3 pg (27.0-33.0); Mean Corpuscular Volume 93.7 fL (80.0-98.0); Mean Platelet Volume 12.1 fL (9.4-12.3); Monocytes Absolute Auto 0.4 X10*3/uL (0.1-1.2); Monocytes Percent Auto 11.7 % (2-11); Neutrophils Absolute Auto 1.4 x10*3/uL (2.0-8.3); Platelet Count 240 X10*3/uL (160-400); Red Cell Distribution Width 12.2 % (11.0-16.0); White Blood Count 3.7 X10*3/uL (4.8-10.8)
[2023-03-31 13:45] LABS: Anion Gap 12 (12-20); Blood Urea Nitrogen 17 mg/dL (9-16); Calcium 9.6 mg/dL (8.4-10.2); Carbon Dioxide 29 mmol/L (22-29); Chloride 104 mmol/L (96-108); Cholesterol 164 mg/dL (<200); Estimated Glomerular Filt Rate > 60; Glucose Random 90 mg/dL (60-115); HDL Cholesterol 63 mg/dL (>40); LDL Cholesterol Calculated 88 mg/dL (<100); Potassium 4.1 mmol/L (3.3-5.1); Sodium 141 mmol/L (135-145); Triglycerides 66 mg/dL (<150)
== END 2023-03-31 10:16 | disposition home or self-care (01) ==
LOC: HO.HMGCLDS 10:15
PROVIDERS: PCP Internal Medicine; Visit Provider Internal Medicine
DX: E03.9 Hypothyroidism, unspecified (principal); I10 Essential (primary) hypertension
CPT/HCPCS: 36415; 80048; 80061; 81001; 85025

== ENCOUNTER 2023-05-04 08:00 | Outpatient (AMB) | payer OTHER, SELFPAY ==
--- NOTE | 2023-05-04 08:00 | A.OFFPC_ITS ---
Vital Signs 05/04/23 08:01 Height 5 ft 6 in Weight 153 lb BMI 24.7 BP 122/74 Blood Pressure Location Lt brachial Position Sitting Pulse 60 Pulse Source Pulse Oximeter Pulse Oximetry (%) 98 Oxygen Delivery Method Room Air Intake Visit Reasons: 6 month fu Intake Note: Pt is here today for 6 months follow up visit. Allergies No Known Allergies Allergy (Verified 05/04/23 08:03) Medication List - Last Reconciled 05/04/23 by Maria Ines Estrada MD amlodipine 2.5 mg PO DAILY atorvastatin 10 mg PO DAILY hydrochlorothiazide 12.5 mg PO DAILY levothyroxine 100 mcg PO DAILY meclizine 25 mg PO BID PRN [medical alert device with fall detection and GPS As directed] Tobacco use date assessed: 03/30/23 Fall risk assessment: 1 Fall in past year Last assessed Fall Risk: 05/04/23 Dental Screening Dental Screen Date: 05/04/23 HPI 6 month fu HPI Details Patient presents for the follow-up hypertension and hyperlipidemia, controlled on current medications. She complains of persistent right ankle discomfort and soft tissue swelling worse when walking longer distance she had negative x-ray of right ankle joint [facility] Medical History (Updated 05/04/23 @ 09:13 by Maria Ines Estrada MD) Syncope Palpitations Knee pain, left Hyperlipidemia TIA (transient ischemic attack) GERD (gastroesophageal reflux disease) Mammogram normal Annual physical exam Postmenopausal bleeding Osteoarthritis of knee DJD (degenerative joint disease) IBS (irritable bowel syndrome) Insomnia Anxiety Hypothyroidism Surgical History H/O colonoscopy Cervical polyp History of breast biopsy Fistula Family History Father HTN (hypertension) Cancer Lung cancer Mother HTN (hypertension) CHF (congestive heart failure) Brother Cancer Brother No problems noted. Social History Housing: House Patient Tobacco Use Status: Former Tobacco user (1 year ago) e-Cigarette/Vaping Use: Former Use Current occupational status: employed Cognitive needs: No Hearing needs: No Vision needs: No Questionnaire Thrive Questionnaire Date Thrive assessed: 07/07/22 TELMA-7 AMB Questionnaire TELMA-7 Date TELMA - 7 assessed: 07/07/22 Source: Developed by Drs. Leonardo Medina, Sangita Chin, Zachary Benavides and colleagues, with an educational brice from [employer]. Review of Systems Const All systems reviewed & are unremarkable except as noted in HPI and below Reports no additional complaints Eyes Reports no additional complaints Card Reports no additional complaints Resp Reports no additional complaints GI Reports no additional complaints Physical exam (Primary Care) Vital Signs: Last Vital Signs Pulse 60 05/04/23 08:01 BP 122/74 05/04/23 08:01 Pulse Ox 98 05/04/23 08:01 Oxygen Delivery Method Room Air 05/04/23 08:01 BMI result Body Mass Index 24.7 Tobacco/Smoking Status: Tobacco use Status Tobacco use date assessed 03/30/23 05/04/23 08:03 Patient Tobacco Use Status Former Tobacco user (1 year 05/04/23 08:03 ago) e-Cigarette/Vaping Use Former Use 05/04/23 08:03 Thrive Assessment: Date of Thrive Assessment Date Thrive assessed 07/07/22 05/04/23 08:03 Const General: no acute distress HENMT Head: Yes normal to inspection Ears: hearing grossly normal bilaterally Face and sinus: Yes normal facial exam Resp Effort & Inspection: normal respiratory effort Auscultation: clear to auscultation bilaterally Cardio Rhythm: regular rhythm Heart sounds: S1 normal heart sound present and S2 normal heart sound present GI Inspection: Yes normal to inspection Palpation (GI): Soft to palpation Assessment and Plan Assessment & Plan (1) Neutropenia: Comment: Chronic since 2019 Code(s): D70.9 - Neutropenia, unspecified Plan: Patient was advised to take B12 500 mcg for 1 month and repeat CBC and a vitamin B12 (2) Hyperlipidemia: Code(s): E78.5 - Hyperlipidemia, unspecified Plan: Continue statin (3) Hypothyroidism: Comment: f/u Dr. Espino Code(s): E03.9 - Hypothyroidism, unspecified Plan: Continue levothyroxine (4) Right ankle sprain: Code(s): S93.401A - Sprain of unspecified ligament of right ankle, initial encounter Plan: Patient will schedule physical therapy (5) HTN (hypertension): Code(s): I10 - Essential (primary) hypertension Plan: Continue current medications, return in 6 months for physical with a fasting labs before Orders: Orders Vitamin B12 1 Month D70.9 - Neutropenia, unspecified Complete Blood Count Man Dif 1 Month D70.9 - Neutropenia, unspecified Medications: New metronidazole 0.75% (MetroCream) 1 appl topical BEDTIME 45 grams 1RF Coding Level of Care Code Est Pt Level 4 (97656) Diagnoses Neutropenia D70.9 Hyperlipidemia E78.5 Hypothyroidism E03.9 Right ankle sprain S93.401A HTN (hypertension) I10
[2023-05-04 08:01] VITALS: BP 122/74; PULSE 60; O2SAT 98; BMI 24.7
== END 2023-05-04 08:59 | disposition home or self-care (01) ==
PROVIDERS: PCP Internal Medicine; Visit Provider Internal Medicine
DX: D70.9 Neutropenia, unspecified (principal); E78.5 Hyperlipidemia, unspecified; E03.9 Hypothyroidism, unspecified; S93.401A Sprain of unspecified ligament of right ankle, initial encounter; I10 Essential (primary) hypertension
CPT/HCPCS: 99214

== ENCOUNTER 2023-08-06 13:22 | Outpatient (AMB) | payer OTHER, SELFPAY ==
[2023-08-06 13:23] VITALS: BP 130/70; PULSE 56; TEMP 36.6; O2SAT 98; BMI 24.9
--- NOTE | 2023-08-06 13:23 | AM.OFFWIN_ITS ---
Intake Vital Signs 08/06/23 13:23 Height 5 ft 6 in Weight 154 lb BMI 24.9 BP 130/70 Blood Pressure Location Rt brachial Position Sitting Pulse 56 Pulse Source Pulse Oximeter Temp 98 F Temp Source Oral Pulse Oximetry (%) 98 Oxygen Delivery Method Room Air Intake Visit Reasons: EP RT big toe pain/gout? Intake Note: Pt is here today c/o Rt grt toe pain Patient Tobacco Use Status: Former Tobacco user Allergies No Known Allergies Allergy (Verified 08/06/23 13:28) HPI HPI Comments History of Present Illness Details 67 yo female with R great toe pain x 1 d ay. Endorses redness and swelling PFSH Medical History (Updated 05/04/23 @ 09:13 by Maria Ines Estrada MD) Syncope Palpitations Knee pain, left Hyperlipidemia TIA (transient ischemic attack) GERD (gastroesophageal reflux disease) Mammogram normal Annual physical exam Postmenopausal bleeding Osteoarthritis of knee DJD (degenerative joint disease) IBS (irritable bowel syndrome) Insomnia Anxiety Hypothyroidism Surgical History H/O colonoscopy Cervical polyp History of breast biopsy Fistula Family History Father HTN (hypertension) Cancer Lung cancer Mother HTN (hypertension) CHF (congestive heart failure) Brother Cancer Brother No problems noted. Social History Housing: House Patient Tobacco Use Status: Former Tobacco user e-Cigarette/Vaping Use: Former Use Current occupational status: employed Cognitive needs: No Hearing needs: No Vision needs: No Review of Systems Musc Details: Toe pain Physical Exam Vital Signs: Last Vital Signs Temp 98 F 08/06/23 13:23 Pulse 56 08/06/23 13:23 BP 130/70 08/06/23 13:23 Pulse Ox 98 08/06/23 13:23 Oxygen Delivery Method Room Air 08/06/23 13:23 BMI result Body Mass Index 24.9 Const General: cooperative, healthy appearing, no acute distress and alert Orientation/consciousness: patient oriented x3 Limitations: no limitations HEENT Head: Yes normal to inspection Ears: hearing grossly normal bilaterally General nose exam: Normal external nose present Resp Effort & Inspection: normal respiratory effort and able to speak in complete sentences Cardio Rate: regular rate Skin General skin exam: no rashes or lesions noted Neuro General: patient oriented x3 Extrem Other: Swelling of the R great toe. ? mild erythema. slight ttp General: Yes normal to inspection Assessment & Plan Assessment & Plan (1) Toe pain, right: Code(s): M79.674 - Pain in right toe(s) Plan: Suspected gout based on clinical signs and symptoms. no trauma or evidence of such. Shared decision making occurred. Will trial Naproxen 500 BID x 3 days no more than 7 days. No hx of renal dx w/ nml kindey function. Low concern for GI bleeding. Medications: New naproxen Suspected gout. Take twice a day for 3 days. NO more than 7 days 500 mg PO BID 14 tabs 0RF Coding Level of Care Code Est Pt Level 4 (14465) Diagnoses Toe pain, right M79.674
== END 2023-08-06 13:46 | disposition home or self-care (01) ==
PROVIDERS: PCP Internal Medicine; Visit Provider Physician Assistant
DX: M79.674 Pain in right toe(s) (principal)
CPT/HCPCS: 99214

== ENCOUNTER 2023-09-26 13:24 | Outpatient (AMB) | payer OTHER, SELFPAY ==
[2023-09-26 13:31] VITALS: BP 118/64; PULSE 46; O2SAT 99; BMI 24.9
--- NOTE | 2023-09-26 13:31 | A.OFFPC_ITS ---
Vital Signs 09/26/23 13:31 Height 5 ft 6 in Weight 154 lb BMI 24.9 BP 118/64 Blood Pressure Location Rt brachial Position Sitting Pulse 46 L Pulse Source Pulse Oximeter Pulse Oximetry (%) 99 Oxygen Delivery Method Room Air Intake Visit Reasons: FU right great toe pain Intake Note: Pt is here today for a follow up visit on pain in R great toe. Allergies No Known Allergies Allergy (Verified 09/26/23 13:34) Tobacco use date assessed: 09/26/23 Dental Screening Dental Screen Date: 09/26/23 HPI FU right great toe pain HPI Details Pt c/o right 1st toe pain worse when walking for 1 week. Patient when to two urgent care centers and was told by SUGAR CANE PLANTER MACHINE OPERATOR that she had a fracture which was not confirmed by official x-ray reading by radiologist. Patient was seen by transit department clerk and CT was obtained which was negative for the fracture or any bony abnormalities in the right 1st toe. Patient was prescribed naproxen by took only for 1 day. She has been wearing a hard boot when walking. [facility] Medical History (Updated 09/26/23 @ 14:17 by Maria Ines Estrada MD) Syncope Palpitations Knee pain, left Hyperlipidemia TIA (transient ischemic attack) GERD (gastroesophageal reflux disease) Mammogram normal Annual physical exam Postmenopausal bleeding Osteoarthritis of knee DJD (degenerative joint disease) IBS (irritable bowel syndrome) Insomnia Anxiety Hypothyroidism Surgical History H/O colonoscopy Cervical polyp History of breast biopsy Fistula Family History Father HTN (hypertension) Cancer Lung cancer Mother HTN (hypertension) CHF (congestive heart failure) Brother Cancer Brother No problems noted. Social History Housing: House Patient Tobacco Use Status: Former Tobacco user e-Cigarette/Vaping Use: Former Use service: No Current occupational status: employed Cognitive needs: No Hearing needs: No Vision needs: No Questionnaire PHQ-9 Over the last 2 weeks, how often have you been bothered by any of the following problems? 1. Little interest or pleasure in doing things: not at all 2. Feeling down, depressed, or hopeless: not at all 3. Trouble falling or staying asleep, or sleeping too much: not at all 4. Feeling tired or having little energy: not at all 5. Poor appetite or overeating: not at all 6. Feeling bad about yourself - or that you are a failure or have let yourself or your family down: not at all 7. Trouble concentrating on things, such as reading the newspaper or watching television: not at all 8. Moving or speaking so slowly that other people could have noticed. Or the opposite - being so fidgety or restless that you have been moving around a lot more than usual: not at all 9. Thoughts that you would be better off or of hurting yourself in some way: not at all Total score: 0 Depression Screening Interpretation: Negative Depression Screening Done: Yes 25431 - PHQ-9 Billing: Yes Source: Developed by Drs. Leonardo Medina, Sangita Chin, Zachary Benavides and colleagues, with an educational brice from [employer]. Thrive Questionnaire Date Thrive assessed: 09/26/23 I am a: Patient What is your living situation today?: I have a steady place to live Within the past 12 months, did the food you bought not last and you didn't have the money to get more?: Never true Within the past 12 months, did you worry whether your food would run out before you got money to buy more?: I choose not to answer this question Do you have trouble paying for medicines?: No Do you have trouble getting transportation to medical appointments?: No Do you have trouble paying your heating and electricity bill?: No Do you have trouble taking care of your child, family member or friend?: No Do you have trouble with day-to-day activities such as bathing, preparing meals, shopping, managing finances, etc.?: No Are you currently unemployed and looking for a job?: No Are you interested in more education?: No Please select the resources that you would like help with: Housing/[facility] Currently or been in a relationship where the following occur: I choose not to answer THRIVE Score: 0 AUDIT C Alcohol Use Questionnaire (AUDIT-C) 1. How often do you have a drink containing alcohol?: Monthly or less 2. How many drinks containing alcohol do you have on a typical day when you are drinking?: 1 or 2 3. How often do you have six or more drinks on one occasion?: Never Total Score: 1 TELMA-7 AMB Questionnaire TELMA-7 Date TELMA - 7 assessed: 09/26/23 Feeling nervous, anxious, or on edge: 0 = Not at all Not being able to stop or control worryin = Not at all Worrying too much about different things: 0 = Not at all Trouble relaxin = Not at all Being so restless that it is hard to sit still: 0 = Not at all Becoming easily annoyed or irritable: 0 = Not at all Feeling afraid as if something awful might happen: 0 = Not at all Total TELMA-7 score (0-4 normal; 5-9 mild; 10-14 moderate; 15-21 severe): 0 Source: Developed by Drs. Leonardo Medina, Sangita Chin, Zachary Benavides and colleagues, with an educational brice from [employer]. TELMA-7 Assessment Billing TELMA-7 Assessment Tool: TELMA-7 Assessment 95183 Review of Systems Const All systems reviewed & are unremarkable except as noted in HPI and below Card Reports no additional complaints Resp Reports no additional complaints GI Reports no additional complaints Reports no additional complaints Physical exam (Primary Care) Vital Signs: Last Vital Signs Pulse 46 L 09/26/23 13:31 BP 118/64 09/26/23 13:31 Pulse Ox 99 09/26/23 13:31 Oxygen Delivery Method Room Air 09/26/23 13:31 BMI result Body Mass Index 24.9 Tobacco/Smoking Status: Tobacco use Status Tobacco use date assessed 09/26/23 09/26/23 13:35 Patient Tobacco Use Status Former Tobacco user 09/26/23 13:32 e-Cigarette/Vaping Use Former Use 09/26/23 13:32 PHQ-9: PHQ-9 Score PHQ-9: Total score 0 09/26/23 13:38 Depression Screening Interpretation: Negative Thrive Assessment: Date of Thrive Assessment Date Thrive assessed 09/26/23 09/26/23 13:38 Currently or been in a relationship where the following occur: I choose not to answer Const General: no acute distress HENMT Mouth: Normal oral and palatal mucosa present Resp Effort & Inspection: normal respiratory effort Auscultation: clear to auscultation bilaterally Cardio Rate: bradycardic Heart sounds: S1 normal heart sound present and S2 normal heart sound present GI Inspection: Yes normal to inspection Extrem Other: Right first toe slight soft tissue swelling no erythema warmth, there is a slight tenderness over PIP and D IP joints Assessment and Plan Assessment & Plan (1) Toe pain, right: Code(s): M79.674 - Pain in right toe(s) Plan: Check uric acid level, patient declined taking and NSAIDs because of concern of side effects. Prednisone 20 mg for 5 days is prescribed. (2) Hypothyroidism: Comment: f/u Dr. Espino Code(s): E03.9 - Hypothyroidism, unspecified Plan: Continue levothyroxine (3) Annual physical exam: Code(s): Z00.00 - Encounter for general adult medical examination without abnormal findings (4) Hyperlipidemia: Code(s): E78.5 - Hyperlipidemia, unspecified (5) Syncope: Comment: admitted to [facility] 01/05, f/u PVD, Dr. Valero, Holter for 30 DAYS negative cardiac workup Code(s): R55 - Syncope and collapse Plan: Continue statin (6) Vitamin D deficiency: Code(s): E55.9 - Vitamin D deficiency, unspecified (7) HTN (hypertension): Code(s): I10 - Essential (primary) hypertension Plan: Continue current medications (8) Neutropenia: Comment: Chronic since 2019 Code(s): D70.9 - Neutropenia, unspecified Orders: Orders Basic Metabolic Panel Today M79.674 - Pain in right toe(s) Uric Acid Today M79.674 - Pain in right toe(s) Comprehensive [place]. Panel Fast Today D70.9 - Neutropenia, unspecified, E03.9 - Hypothyroidism, unspecified, E55.9 - Vitamin D deficiency, unspecified, E78.5 - Hyperlipidemia, unspecified, I10 - Essential (primary) hypertension, R55 - Syncope and collapse, Z00.00 - Encounter for general adult medical examination without abnormal findings TSH reflex Free T4 Today D70.9 - Neutropenia, unspecified, E03.9 - Hypothyroidism, unspecified, E55.9 - Vitamin D deficiency, unspecified, E78.5 - Hyperlipidemia, unspecified, I10 - Essential (primary) hypertension, R55 - Syncope and collapse, Z00.00 - Encounter for general adult medical examination without abnormal findings Lipid Panel Today D70.9 - Neutropenia, unspecified, E03.9 - Hypothyroidism, unspecified, E55.9 - Vitamin D deficiency, unspecified, E78.5 - Hyperlipidemia, unspecified, I10 - Essential (primary) hypertension, R55 - Syncope and collapse, Z00.00 - Encounter for general adult medical examination without abnormal findings Complete Blood Count Auto Diff Today D70.9 - Neutropenia, unspecified, E03.9 - Hypothyroidism, unspecified, E55.9 - Vitamin D deficiency, unspecified, E78.5 - Hyperlipidemia, unspecified, I10 - Essential (primary) hypertension, R55 - Syncope and collapse, Z00.00 - Encounter for general adult medical examination without abnormal findings Vitamin B12 and Folate Today D70.9 - Neutropenia, unspecified, E03.9 - Hypothyroidism, unspecified, E55.9 - Vitamin D deficiency, unspecified, E78.5 - Hyperlipidemia, unspecified, I10 - Essential (primary) hypertension, R55 - Syncope and collapse, Z00.00 - Encounter for general adult medical examination without abnormal findings Vitamin D 25-OH Total Today D70.9 - Neutropenia, unspecified, E03.9 - Hypothyroidism, unspecified, E55.9 - Vitamin D deficiency, unspecified, E78.5 - Hyperlipidemia, unspecified, I10 - Essential (primary) hypertension, R55 - Syncope and collapse, Z00.00 - Encounter for general adult medical examination without abnormal findings Medications: New prednisone 20 mg PO DAILY 5 tabs 0RF Coding Level of Care Code Est Pt Level 3 (26990) Diagnoses Toe pain, right M79.674 Hypothyroidism E03.9 Annual physical exam Z00.00 Hyperlipidemia E78.5 Syncope R55 Vitamin D deficiency E55.9 HTN (hypertension) I10 Neutropenia D70.9 Additional Codes TELMA-7 Assessment Billing - TELMA-7 Assessment Tool: TELMA-7 Assessment 04164 ([id number])
== END 2023-09-26 14:26 | disposition home or self-care (01) ==
PROVIDERS: PCP Internal Medicine; Visit Provider Internal Medicine
DX: M79.674 Pain in right toe(s) (principal); D70.9 Neutropenia, unspecified; E03.9 Hypothyroidism, unspecified; E78.5 Hyperlipidemia, unspecified; R55 Syncope and collapse; E55.9 Vitamin D deficiency, unspecified; I10 Essential (primary) hypertension
CPT/HCPCS: 99213

== ENCOUNTER 2023-09-26 14:26 | Outpatient (REF) | payer OTHER, SELFPAY ==
[2023-09-26 16:17] LABS: MANUAL DIFF FLAG NO
[2023-09-26 16:24] LABS: Basophils Absolute Auto 0.1 X10*3/uL (0.0-0.2); Basophils Percent Auto 1.1 % (0-2); Eosinophils Absolute Auto 0.2 X10*3/uL (0.0-0.4); Eosinophils Percent Auto 3.7 % (0-4); Hematocrit 42.7 % (37.0-47.0); Hemoglobin 13.7 g/dl (12.0-16.0); Imm Gran Abs Auto 0.01 X10*3/uL (0.00-0.03); Imm Gran Pct Auto 0.2 % (0.0-0.4); Lymphocytes Absolute Auto 2.1 X10*3/uL (1.2-4.9); Lymphocytes Percent Auto 47.8 % (20-40); Mean Corpuscular HGB Conc 32.1 g/dl (31.0-35.0); Mean Corpuscular Hemoglobin 29.8 pg (27.0-33.0); Mean Corpuscular Volume 92.8 fL (80.0-98.0); Monocytes Absolute Auto 0.4 X10*3/uL (0.1-1.2); Monocytes Percent Auto 9.4 % (2-11); Neutrophils Absolute Auto 1.6 x10*3/uL (2.0-8.3); Neutrophils Percent Auto 37.8 % (45-73); Platelet Count 195 X10*3/uL (160-400); Red Cell Distribution Width 12.5 % (11.0-16.0); White Blood Count 4.4 X10*3/uL (4.8-10.8)
[2023-09-26 17:04] LABS: Anion Gap 14 (12-20); Blood Urea Nitrogen 18 mg/dL (9-16); Calcium 9.8 mg/dL (8.4-10.2); Carbon Dioxide 28 mmol/L (22-29); Chloride 105 mmol/L (96-108); Estimated Glomerular Filt Rate > 60; Glucose Random 90 mg/dL (60-115); Potassium 4.2 mmol/L (3.3-5.1); Sodium 143 mmol/L (135-145); Uric Acid 4.5 mg/dL (2.4-5.7)
[2023-09-26 17:09] LABS: TSH reflex Free T4 0.71 uIU/mL (0.32-4.0); Vitamin D 25-OH Total 26.9 ng/mL (>30)
[2023-09-26 17:28] LABS: Folate 11.8 ng/mL (> or = 4.0); Vitamin B12 533 pg/mL (200-900)
== END 2023-09-26 14:27 | disposition home or self-care (01) ==
LOC: HO.HMGCLDS 14:26
PROVIDERS: PCP Internal Medicine; Visit Provider Internal Medicine
DX: Z00.00 Encounter for general adult medical examination without abnormal findings (principal); M79.674 Pain in right toe(s); I10 Essential (primary) hypertension; D70.9 Neutropenia, unspecified; E55.9 Vitamin D deficiency, unspecified; R55 Syncope and collapse; E78.5 Hyperlipidemia, unspecified; E03.9 Hypothyroidism, unspecified
CPT/HCPCS: 36415; 80048; 82306; 82607; 82746; 84443; 84550; 85025

== ENCOUNTER 2023-09-27 06:38 | Outpatient (REF) | payer OTHER, SELFPAY ==
[2023-09-27 10:50] LABS: Alanine Aminotransferase 18 U/L (0-31); Albumin Level 4.3 g/dL (3.5-5.0); Alkaline Phosphatase 55 U/L (39-117); Anion Gap 9 (12-20); Aspartate Amino Transferase 21 U/L (5-31); Bilirubin Total 0.8 mg/dL (0.0-1.0); Blood Urea Nitrogen 25 mg/dL (9-16); Calcium 9.5 mg/dL (8.4-10.2); Carbon Dioxide 30 mmol/L (22-29); Chloride 106 mmol/L (96-108); Cholesterol 182 mg/dL (<200); Estimated Glomerular Filt Rate > 60; Glucose Fasting 100 mg/dL (60-99); HDL Cholesterol 64 mg/dL (>40); LDL Cholesterol Calculated 101 mg/dL (<100); Potassium 4.1 mmol/L (3.3-5.1); Sodium 141 mmol/L (135-145); Total Protein 7.1 g/dL (6.5-8.0); Triglycerides 87 mg/dL (<150)
== END 2023-09-27 06:39 | disposition home or self-care (01) ==
LOC: HO.HMGCLDS 06:38
PROVIDERS: PCP Internal Medicine; Visit Provider Internal Medicine
DX: Z00.00 Encounter for general adult medical examination without abnormal findings (principal); E03.9 Hypothyroidism, unspecified; E78.5 Hyperlipidemia, unspecified; R55 Syncope and collapse; E55.9 Vitamin D deficiency, unspecified; D70.9 Neutropenia, unspecified; I10 Essential (primary) hypertension
CPT/HCPCS: 36415; 80053; 80061

== ENCOUNTER 2023-11-09 07:58 | Outpatient (AMB) | payer OTHER, SELFPAY ==
[2023-11-09 08:02] VITALS: BP 120/74; PULSE 55; O2SAT 99; BMI 24.5
--- NOTE | 2023-11-09 08:02 | MHC.PC.OV ---
Vital Signs 11/09/23 08:02 Height 5 ft 6 in Weight 152 lb BMI 24.5 BP 120/74 Blood Pressure Location Lt brachial Position Sitting Pulse 55 Pulse Source Pulse Oximeter Pulse Oximetry (%) 99 Oxygen Delivery Method Room Air Intake Visit Reasons: PE Intake Note: Pt is here today for PE. Allergies No Known Allergies Allergy (Verified 11/09/23 08:03) Medication List - Last Reconciled 11/09/23 by Maria Ines Estrada MD amlodipine 2.5 mg PO DAILY atorvastatin 10 mg PO DAILY levothyroxine 100 mcg PO DAILY [medical alert device with fall detection and GPS As directed] Tobacco use date assessed: 09/26/23 Dental Screening Dental Screen Date: 09/26/23 HPI PE HPI Details Pt presents for PE. Pt reports not feeling well, headaches, nausea, low BP. Pt feels better since she stopped taking hydrochlorothiazide week ago. She denies fever chills change in bowel habits dysuria hematuria. [facility] Medical History (Updated 11/09/23 @ 08:28 by Maria Ines Estrada MD) Syncope Palpitations Knee pain, left Hyperlipidemia TIA (transient ischemic attack) GERD (gastroesophageal reflux disease) Mammogram normal Annual physical exam Postmenopausal bleeding Osteoarthritis of knee DJD (degenerative joint disease) IBS (irritable bowel syndrome) Insomnia Anxiety Hypothyroidism Surgical History H/O colonoscopy Cervical polyp History of breast biopsy Fistula Family History Father HTN (hypertension) Cancer Lung cancer Mother HTN (hypertension) CHF (congestive heart failure) Brother Cancer Brother No problems noted. Social History Housing: House Patient Tobacco Use Status: Former Tobacco user e-Cigarette/Vaping Use: Former Use service: No Current occupational status: employed Cognitive needs: No Hearing needs: No Vision needs: No Questionnaire Thrive Questionnaire Date Thrive assessed: 09/26/23 I am a: Patient What is your living situation today?: I have a steady place to live Within the past 12 months, did the food you bought not last and you didn't have the money to get more?: Never true Within the past 12 months, did you worry whether your food would run out before you got money to buy more?: I choose not to answer this question Do you have trouble paying for medicines?: No Do you have trouble getting transportation to medical appointments?: No Do you have trouble paying your heating and electricity bill?: No Do you have trouble taking care of your child, family member or friend?: No Do you have trouble with day-to-day activities such as bathing, preparing meals, shopping, managing finances, etc.?: No Are you currently unemployed and looking for a job?: No Are you interested in more education?: No Please select the resources that you would like help with: None Currently or been in a relationship where the following occur: I choose not to answer THRIVE Score: 0 TELMA-7 AMB Questionnaire TELMA-7 Date TELMA - 7 assessed: 09/26/23 Source: Developed by Drs. Leonardo Medina, Sangita Chin, Zachary Benavides and colleagues, with an educational brice from [employer]. Review of Systems Const All systems reviewed & are unremarkable except as noted in HPI and below Eyes Reports no additional complaints ENT Reports no additional complaints Card Reports no additional complaints Resp Reports no additional complaints GI Reports no additional complaints Reports no additional complaints Physical exam (Primary Care) Vital Signs: Last Vital Signs Pulse 55 11/09/23 08:02 BP 120/74 11/09/23 08:02 Pulse Ox 99 11/09/23 08:02 Oxygen Delivery Method Room Air 11/09/23 08:02 BMI result Body Mass Index 24.5 Tobacco/Smoking Status: Tobacco use Status Tobacco use date assessed 09/26/23 11/09/23 08:06 Patient Tobacco Use Status Former Tobacco user 11/09/23 08:06 e-Cigarette/Vaping Use Former Use 11/09/23 08:06 Thrive Assessment: Date of Thrive Assessment Date Thrive assessed 09/26/23 11/09/23 08:06 Currently or been in a relationship where the following occur: I choose not to answer Const General: no acute distress HENMT Head: Yes normal to inspection General nose exam: Normal external nose present Throat: Yes posterior oropharynx normal Eyes General: appearance normal, both eyes and all related structures Resp Effort & Inspection: normal respiratory effort Auscultation: clear to auscultation bilaterally Cardio Rhythm: regular rhythm Heart sounds: S1 normal heart sound present and S2 normal heart sound present GI Inspection: Yes normal to inspection Palpation (GI): Soft to palpation Percussion: Yes normal to percussion Auscultation: normal bowel sounds Extrem General: Yes no clubbing, cyanosis or edema Assessment and Plan Assessment & Plan (1) Hypothyroidism: Comment: f/u Dr. Espino Code(s): E03.9 - Hypothyroidism, unspecified Plan: Continue levothyroxine (2) Annual physical exam: Code(s): Z00.00 - Encounter for general adult medical examination without abnormal findings Plan: Well-balanced diet regular physical activity discussed with the patient. She will schedule mammogram and is up-to-date with colonoscopy and Pap by lighting specialist (3) Hyperlipidemia: Code(s): E78.5 - Hyperlipidemia, unspecified Plan: Continue statin (4) HTN (hypertension): Code(s): I10 - Essential (primary) hypertension Plan: Continue amlodipine, patient was advised to take it at night and hold hydrochlorothiazide. Patient has been monitor her blood pressure at home and reports the reading to the fire alarm operator. Check basic metabolic panel and urine culture (5) Vitamin D deficiency: Code(s): E55.9 - Vitamin D deficiency, unspecified Orders: Orders Basic Metabolic Panel Today E78.5 - Hyperlipidemia, unspecified, I10 - Essential (primary) hypertension, R11.0 - Nausea Urine Culture Today R11.0 - Nausea Lipid Panel 1 Year E03.9 - Hypothyroidism, unspecified, E55.9 - Vitamin D deficiency, unspecified, E78.5 - Hyperlipidemia, unspecified, Z00.00 - Encounter for general adult medical examination without abnormal findings UA w Microscopic Today E78.5 - Hyperlipidemia, unspecified, I10 - Essential (primary) hypertension, R11.0 - Nausea Comprehensive [place]. Panel Fast 1 Year E03.9 - Hypothyroidism, unspecified, E55.9 - Vitamin D deficiency, unspecified, E78.5 - Hyperlipidemia, unspecified, Z00.00 - Encounter for general adult medical examination without abnormal findings Complete Blood Count Auto Diff 1 Year E03.9 - Hypothyroidism, unspecified, E55.9 - Vitamin D deficiency, unspecified, E78.5 - Hyperlipidemia, unspecified, Z00.00 - Encounter for general adult medical examination without abnormal findings TSH reflex Free T4 1 Year E03.9 - Hypothyroidism, unspecified, E55.9 - Vitamin D deficiency, unspecified, E78.5 - Hyperlipidemia, unspecified, Z00.00 - Encounter for general adult medical examination without abnormal findings Vitamin D 25-OH Total 1 Year E03.9 - Hypothyroidism, unspecified, E55.9 - Vitamin D deficiency, unspecified, E78.5 - Hyperlipidemia, unspecified, Z00.00 - Encounter for general adult medical examination without abnormal findings Medications: Discontinued hydrochlorothiazide Discontinued Reason: Doctor's Order 12.5 mg PO DAILY 90 tabs 3RF Coding Level of Care Code Est Pt Prev Care >65y(72610) Diagnoses Hypothyroidism E03.9 Annual physical exam Z00.00 Hyperlipidemia E78.5 HTN (hypertension) I10 Vitamin D deficiency E55.9
== END 2023-11-09 08:40 | disposition home or self-care (01) ==
PROVIDERS: PCP Internal Medicine; Visit Provider Internal Medicine
DX: E03.9 Hypothyroidism, unspecified (principal); Z00.00 Encounter for general adult medical examination without abnormal findings; E78.5 Hyperlipidemia, unspecified; I10 Essential (primary) hypertension; E55.9 Vitamin D deficiency, unspecified

== ENCOUNTER → 2023-11-09 07:58 | Outpatient (BNVA) | payer OTHER, SELFPAY | PROVIDERS: PCP Internal Medicine; Visit Provider Internal Medicine | DX: Z00.00 Encounter for general adult medical examination without abnormal findings (principal) ==

== ENCOUNTER 2023-11-09 08:28 | Outpatient (REF) | payer OTHER, SELFPAY ==
[2023-11-09 10:33] LABS: Appearance Urine Clear; Color Urine Yellow; Glucose Urine UA Negative (Negative); Leukocyte Esterase Urine Negative (Negative); Nitrite Urine Negative (Negative); PH 6.5 (5.0-9.0); Specific Gravity - Urine 1.015 (1.005-1.025); Urine Blood Negative (Negative); Urine Ketones Negative (Negative); Urine Protein Negative (Neg-Trace)
[2023-11-09 10:39] LABS: Bacteria Urine None Seen (None Seen); Hyaline Casts Urine 0-2 /LPF (0-2); RBC Urine 0-2 /HPF (0-2); Squamous Epithelial Cell Urine 0-2 /HPF (0-2); WBC Urine 0-5 /HPF (0-5)
[2023-11-09 10:50] LABS: Anion Gap 11 (12-20); Blood Urea Nitrogen 14 mg/dL (9-16); Calcium 9.7 mg/dL (8.4-10.2); Carbon Dioxide 28 mmol/L (22-29); Chloride 107 mmol/L (96-108); Estimated Glomerular Filt Rate > 60; Glucose Random 87 mg/dL (60-115); Sodium 142 mmol/L (135-145)
== END 2023-11-09 08:29 | disposition home or self-care (01) ==
LOC: HO.HMGCLDS 08:28
PROVIDERS: PCP Internal Medicine; Visit Provider Internal Medicine
DX: Z00.00 Encounter for general adult medical examination without abnormal findings (principal); I10 Essential (primary) hypertension; E78.5 Hyperlipidemia, unspecified; R11.0 Nausea; E03.9 Hypothyroidism, unspecified
CPT/HCPCS: 36415; 80048; 81001; 87086

== ENCOUNTER 2024-11-03 10:19 | Outpatient (REF) | payer OTHER, SELFPAY ==
--- OUTSIDE RECORDS SUMMARY | 2023-09-14 06:45 | XMS_ITS ---
Author Organization [facility] Address [address] [place] [address] Care Team Providers Care Display And Banner Designer Name Role Phone Maria Ines Estrada MD Primary Care Provider Unavaila ble Black, Kim Unavailable [phone] Ruthie Joaquin Unavailable [phone] REASON FOR VISIT Seen Sooner Encounters Encounter Location Date Provider Diagnosis [facility] [address] [place] [address] 09/14/2023 Ruthie Joaquin Plan Of Treatment No Information Progress Notes * Laura HERNÁNDEZ MDOB: [birth year] (68 yo F)Acc No.[id number]:09/14/2023 Progress Note Patient: Laura JEFFRIES Provider: Vickie Joaquin DPM :1955 A ge:67 Y S ex:Female Date:09/14/2023 Address:[address] [place] [address] [id number] Pcp:Maria Ines Estrada MD Subjective: * Chief [...] 09/14/2023 Generated for Barbara monroe/Marlon/Binduitting on: 0 11/03/2024 10:22 AM EDT
--- OUTSIDE RECORDS SUMMARY | 2024-09-06 04:00 | XMS_ITS ---
Author Organization [facility] Address [address] [place] [address] Care Team Providers Care Ticket Machine Operator Name Role Phone Maria Ines Estrada MD Primary Care Provider Unavaila Kim Renner [phone] REASON FOR VISIT r/s for sooner apt Encounters Encounter Location Date Provider Diagnosis [facility] [address] [place] [address] 09/06/2024 Kim Mandujano Plan Of Treatment No Information Progress Notes * Laura HERNÁNDEZ MDOB: [birth year] (68 yo F)Acc No.[id number]:09/06/2024 Progress Note Patient: Mady REYNOLDS Laura Kauffman Provider: Mady Mandujano DPM :1955 A ge:68 Y S ex:Female Date:09/06/2024 Address:[address] [place] [address] [id number] Pcp:Maria Ines Estrada MD Subjective: * Chief [...] 09/06/2024 Generated for Printi ng/Faxing/eTransmitting on: 0 11/03/2024 10:22 AM EDT
--- OUTSIDE RECORDS SUMMARY | 2024-11-03 10:22 | XMS_ITS | Clinical Summary ---
Author Organization [facility] Address [address] [place] [phone] Phone Care Team Providers Care Website Admin Name Role Phone Maria Ines Estrada MD Primary Care Provider [phone] Allergies Active Allergy Reactions Criticality Noted Date Comments Adhesive Rash Low 05/11/2023 Medications atorvastatin (LIPITOR) 10 MG tablet Take 5 mg by mouth daily. Active amLODIPine (NORVASC) 2.5 MG tablet Take 2.5 mg by mouth daily. Active SYNTHROID 100 mcg tabletIndication s:Hypothyroidism TAKE 1 TABLET BY MOUTH ONCE DAILY 6 DAYS PER WEEK ; AND TAKE ONE-HALF TABLET BY MOUTH DAILY ON THE 7 TH DAY OF THE WEEK 84 tablet 3 05/10/2024 Active Active Problems Problem Noted Date Diagnosed Date Hyperlipidemia 05/09/2024 Assessment & Plan (05/09/2024 9:47 AM EDT): Fasting today, requested lipids be included. Will forward to PCP. 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 Will check labs & adjust rx as appropriate. Discussed normal thyroid hormone physiology, meaning of TFTs, target TSH. To call/message via portal if hasn't heard from me with results within 1-2 weeks. If levels normal, will repeat labs yearly, sooner prn symptoms of thyroid dysfunction or > 10-15# weight change, or as otherwise clinically indicated. Assessment & Plan (05/11/2023 11:59 AM EDT): Reports good consistency taking rx appropriately. Will check labs & adjust rx as appropriate. o call/message via portal if hasn't heard from me with results within 1-2 weeks. If levels normal, will repeat labs yearly, sooner prn symptoms of thyroid dysfunction or > 10-15# weight change, or as otherwise clinically indicated. Family History Medical History Relation Comments Cancer Father lung Hypertension Father Coronary Artery Disease (female before age 65) M other Cancer Sibling 1 esophageal Hypertension Sibling 2 Diabetes Neg Hx Thyroid disease Neg Hx Relation Status Comments Father Mother Sibling 1 Sibling 2 Social History Tobacco Use Types Packs/Day Years Used Date Smoking Tobacco: Never Smokeless Tobacco: Never Tobacco Cessation:Counseling Given: Not Answered Alcohol Use Standard Drinks/Week Comments Yes 0 (1 standard drink = 0.6 oz pur e alcohol) 1 glass of wine daily Education Answer Date Recorded Are you interested in more education? Not on elizabeth e 06/16/2022 Are you concerned about learning? Not on file 06/16/2022 No 06/16/2022 No 06/16/2022 Digital Access Answer Date Recorded No 07/13/2022 No 07/13/2022 Reliable internet access at home? Not on file 07/13/2022 Device with a working camera? Not on file Comments Unknown Sex and Gender Information Value Date Recorded Sex Assigned at Not on file Legal Sex Female 4:30 PM EST Gender Identity Not on file Sexual Orientation Not on file Last Filed Vital Signs Vital Sign Reading Time Taken Comments Blood Pressure 138/82 05/09/2024 9:11 AM EDT Pulse 58 05/09/2024 9:11 AM EDT Temperature - - Respiratory Rate - - Oxygen Saturation 98% 05/09/2024 9:11 AM EDT Inhaled Oxygen Concentration - - Weight 71.6 kg (157 lb 12.8 oz) 05/09/2024 9:11 AM EDT Height 168.9 cm (5' 6.5 ) 05/09/2024 9:11 AM EDT Body Mass Index 25.09 05/09/2024 9:11 AM EDT Plan of Treatment Upcoming Encounters Date Type Department Care Team (Late st Contact Info) Description 06/05/2025 8:20 AM EDT Office Visit [facility] [address] [place] [address] [place] [address] Geeta Espino MD [address] [place] [phone] [email or web address] Maintenance Due Date Last Done Comments Adult Td,Tdap Booster 1955 DEPRESSION SCREENING 1967 HEPATITIS C SCREENING 11/23/1973 MAMMOGRAM 1995 COLOGUARD 11/23/2000 COLONOSCOPY 11/23/2000 COLORECTAL CANCER SCREENING 11/23/2000 FIT TEST 11/23/2000 FOBT 11/23/2000 SIGMOIDOSCOPY 11/23/2000 VIRTUAL COLONOSCOPY 11/23/2000 PNEUMOCOCCAL VACCINES (50+ years) (1 of 1 - PCV) 11/23/2005 ZOSTER VACCINES (1 of 2) 11/23/2005 OSTEOPOROSIS SCREENING INITI AL (ONE-TIME) 11/23/2020 INFLUENZA VACCINE (#1) 2024 COVID-19 VACCINE (1 - 2023-2 5 season) 2024 TSH LEVEL 05/09/2025 05/09/2024, 05/11/2023 SCREENING FOR DIABETES 05/10/2027 05/09/2024 LIPID PANEL 05/09/2029 05/09/2024 RSV VACCINE (1 - 1-dose 75+ series) 11/23/2030 SMOKING STATUS SCREENING (On ce After 26 Yrs) Completed 05/09/2024 HEPATITIS A VACCINES Aged Out No long er eligible based on patient's age to complete this topic HIB VACCINES Aged Out No longer eligi ble based on patient's age to complete this topic MENINGOCOCCAL VACCINES (ACWY) Aged Out No longer eligible based on patient's age to complete this topic MENINGOCOCCAL VACCINES (B) Aged Out N o longer eligible based on patient's age to complete this topic Medical Devices Not on file Procedures Procedure Name Priority Date/Time Associated Diagnosis Comments LIPID PANEL Routine 05/09/2024 9:52 AM EDT Hyperlipidemia, unspecified hyperlipidemia type TSH Routine 05/09/2024 9:52 AM EDT 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 from Last 3 Months or Most Recently Relevant to Health Maintenance Results * TSH (05/09/2024 9:52 AM EDT) TSH 1.17 0.27 - 4.20 uIU/mL [facility] Blood 05/09/2024 9:52 AM EDT 05/09/2024 9:56 AM EDT Geeta Espino MD LAB BLOOD ORDERABLES F inal Result Performing Organization Address City/[facility]/ZIP Co de Phone Number [address] [address] * (ABNORMAL) Lipid panel (05/09/2024 9:52 AM EDT) HDL 77 mg/dL [facility] Comment: Interpretation <40 mg/dL: Low HDL cholesterol (major risk factor for CHD) Greater than or equal to 60 mg/dL: High HDL cholesterol ( negative risk factor for CHD) HDL - cholesterol is affected by a number of factors, e.g. smoking, excerise, hormones, sex and age. CHOLESTEROL 194 0 - 240 mg/dL [facility] TRIGLYCERIDES 71 30 - 160 mg/dL [facility] LDL 103 50 - 129 mg/dL [facility] Comment: LDL levels in terms of risk for coronary heart disease: <100 mg/dL: Optimal 100-129 mg/dL: Near or above optimal 130-159 mg/dL: Borderline high 160-189 mg/dL: High >190 mg/dL: Very High CARDIAC RISK RATIO 2.5(L) 3.3 - 4.4 C [facility] Blood 05/09/2024 9:52 AM EDT 05/09/2024 9:56 AM EDT Geeta Espino MD LAB BLOOD ORDERABLES F inal Result Performing Organization Address City/[facility]/ZIP Co de Phone Number [address] [address] from Last 3 Months or Most Recently Relevant to Health Maintenance Insurance [facility] HMO [facility] HMO [facility] HMO [facility] HMO [facility] HMO Care Teams Website Admin Relationship Specialty Start Date End Date Maria Ines Estrada MD [address] [place] [address] PCP - General Internal Medicine 05/11/23 Additional Source Comments The information contained in this document represents components of the legal health record. It is not the complete legal health record.[facility]
--- OUTSIDE RECORDS SUMMARY | 2024-11-03 10:23 | XMS_ITS | Patient Health Record ---
[facility] [place] Address [address] [place] [address] Care Team Providers Care Professional Healthcare Representative Name Role Phone Maria Ines Estrada MD Primary Care Provider Unavaila ble Kim Mandujano Unavailable [phone] Allergies Allergen (clinical drug ingredient) Drug/Non Drug Allergy documented on EMR Reaction Allergy Type Onset Date Status Adhesive rash Allergy Active Results Component Value Reference Range Notes X ray : Foot, right 3V Reviewed date:07/30/2024 09:03:41 AM Interpretation:See Examination above Performing Lab: Notes/Report: See Examination above Reason For Referral No Information Medications Medication SIG (Take, Route, Frequency, Duration) Notes Start Date End Date Status Atorvastatin Calcium 10 MG 1 tablet Oral ly Once a day Active amLODIPine Besylate 2.5 MG 1 tablet Oral ly Once a day Active Voltaren 1 % as directed Externally 07/30/2024 Not-Taking Synthroid 100 MCG 1 tablet in the morning on an empty stomach Orally Once a day Active hydroCHLOROthiazide 12.5 MG 1 capsule in the morning Orally Once a day Not-Taking Immunizations Vaccine Route Administration Date Status Comme nts Influenza Unknown 03/17/2024 Administered Social History Tobacco Use: Social History Observation Description Date Details (start date - stop date) Never Smoker NA - NA Alcohol Screen Question Answer Notes Did you have a drink contain ing alcohol in the past year? Yes How often did you have a dri nk containing alcohol in the past year? 4 or more times a week (4 points) How many drinks did you have on a typical day when you were drinking in the past year? 1 or 2 drinks (0 point) Points 4 Interpretation Positive Tobacco use other than smoking: Question Answer Notes Are you an other tobacco user? No Tobacco Control (Standard) Question Answer Notes Tobacco use: Nonsmoker AUDIT-C (Standard) Question Answer Notes Did you have a drink containing alcohol in the p ast year? No Points 0 Interpretation Negative Problems Problem Type SNOMED Code ICD Code Onset Dates Problem Status W/U Status Risk Notes Problem Acquired hammer toe of right foot (0323313072134 105) Other hammer toe(s) (acquired), right foot (M20.41) Active confirmed Problem Arthritis (4961644) Arthritis (M19.90) Active confirmed Problem Acquired right hallux rigidus (1150478893759 00) Hallux limitus of right foot (M20.5X1) Active confirmed Problem Acquired hammer toe of right foot (7293142680484 105) Hammer toe of right foot (M20.41) Active confirmed Vital Signs Blood pressure diastolic 67 mm Hg 10/08/2024 Height 5ft6.5in in 10/08/2024 Blood pressure systolic 117 mm Hg 10/08/2024 Weight 153 lbs 10/08/2024 BMI 24.32 kg/m2 10/08/2024 Encounters Encounter Location Date Provider Diagnosis [facility] [address] 07/30/2024 Kim Black Pain in right foot M79.671 ; Hallux limitus of right foot M20.5X1 ; Pain in right ankle and joints of right foot M25.571 ; Bursitis of right foot M77.51 ; Hammer toe of right foot M20.41 ; Arthralgia of right foot M25.571 and Arthritis M19.[address] [facility] [address] 10/08/2024 Kim Black Pain in right foot M79.671 ; Hallux limitus of right foot M20.5X1 ; Pain in right ankle and joints of right foot M25.571 ; Bursitis of right foot M77.51 ; Hammer toe of right foot M20.41 ; Arthralgia of right foot M25.571 and Arthritis M19.90 Assessments Encounter Date Diagnosis (ICD Code) Assessment Notes Treatment Notes Treatment Clinical Notes Section Notes 07/30/2024 Pain in right foot (ICD-10 - M79.671) 07/30/2024 Hallux limitus of right foot (ICD-10 - M20.5X1) 10/08/2024 Pain in right foot (ICD-10 - M79.671) 10/08/2024 Hallux limitus of right foot (ICD-10 - M20.5X1) 07/30/2024 Pain in right ankle and joints of right foot (ICD-10 - M25.571) 07/30/2024 Bursitis of right foot (ICD-10 - M77.51) 10/08/2024 Pain in right ankle and joints of right foot (ICD-10 - M25.571) 07/30/2024 Hammer toe of right foot (ICD-10 - M20.41) 10/08/2024 Bursitis of right foot (ICD-10 - M77.51) 07/30/2024 Arthralgia of right foot (ICD-10 - M25.571) 10/08/2024 Hammer toe of right foot (ICD-10 - M20.41) 10/08/2024 Arthralgia of right foot (ICD-10 - M25.571) 07/30/2024 Arthritis (ICD-10 - M19.90) 10/08/2024 Arthritis (ICD-10 - M19.90) Plan Of Treatment Pending Test Test Name Order Date X ray : Foot, right 3V 09/02/2023 Insurance Providers Payer Name Payer Address Payer Phone Subscriber Number Group Number Insured Name Patient Relationship to Insured Coverage Start Date Coverage End Date [facility] [address] [place] [address] [id number] Laura Hernández Self - patient is the insured Medical (General) History Medical History History ICD Code Anxiety High blood pressure Lyme disease Neuropathy Osteoporosis thyroid Warts Measles Surgical History Surgery Date(Month/Year)
[2024-11-03 11:10] LABS: MANUAL DIFF FLAG NO
[2024-11-03 11:16] LABS: Hematocrit 43.6 % (37.0-47.0); Hemoglobin 14.0 g/dl (12.0-16.0); Imm Gran Abs Auto 0.01 X10*3/uL (0.00-0.03); Imm Gran Pct Auto 0.2 % (0.0-0.4); Lymphocytes Absolute Auto 1.8 X10*3/uL (1.2-4.9); Mean Corpuscular HGB Conc 32.1 g/dl (31.0-35.0); Mean Corpuscular Hemoglobin 30.0 pg (27.0-33.0); Mean Corpuscular Volume 93.6 fL (80.0-98.0); NRBC Abs Auto 0.000 X10*3/uL (0.0-0.012); NRBC Pct Auto 0.0 /100WBC (0.0-0.2); Platelet Count 206 X10*3/uL (160-400); Red Blood Count 4.66 X10*6/uL (4.20-5.50); White Blood Count 4.0 X10*3/uL (4.8-10.8)
[2024-11-03 11:51] LABS: Alanine Aminotransferase 22 U/L (0-31); Albumin Level 4.5 g/dL (3.5-5.0); Alkaline Phosphatase 72 U/L (39-117); Anion Gap 10 (12-20); Aspartate Amino Transferase 25 U/L (5-31); Blood Urea Nitrogen 18 mg/dL (9-16); Calcium 9.7 mg/dL (8.4-10.2); Carbon Dioxide 30 mmol/L (22-29); Chloride 107 mmol/L (96-108); Cholesterol 193 mg/dL (<200); Estimated Glomerular Filt Rate > 60; HDL Cholesterol 60 mg/dL (>40); Potassium 4.9 mmol/L (3.3-5.1); Sodium 142 mmol/L (135-145); Total Protein 7.2 g/dL (6.5-8.0); Triglycerides 93 mg/dL (<150)
== END 2024-11-03 10:20 | disposition home or self-care (01) ==
LOC: HO.HMGCLDS 10:19
PROVIDERS: PCP Internal Medicine; Visit Provider Internal Medicine
DX: Z00.00 Encounter for general adult medical examination without abnormal findings (principal); E55.9 Vitamin D deficiency, unspecified; E03.9 Hypothyroidism, unspecified; E78.5 Hyperlipidemia, unspecified
CPT/HCPCS: 36415; 80053; 80061; 82306; 84443; 85025

== ENCOUNTER 2024-11-12 08:59 | Outpatient (REF) | payer OTHER, SELFPAY ==
--- NOTE | ~2024-11-12 | XR_ITS ---
EXAMINATION: XR LUMBOSACRAL SPINE CLINICAL INFORMATION: M54.50 - Low back pain, unspecified COMPARISON: None available. TECHNIQUE: Three views of the lumbosacral spine. FINDINGS: There is no scoliosis. There is a normal lordosis. There is a 3 mm degenerative appearing anterolisthesis of L4 on L5, and L5 on S1. There is no fracture, compression deformity, or suspicious bone lesion. Mild to moderate diffuse disc degeneration is present throughout. Facets are normally aligned. There are degenerative facet changes spanning L3-S1. Sacrum is intact. There are mild degenerative changes in both SI joints. Soft tissues demonstrate vascular calcifications. XR/XR lumbar spine 2-3V IMPRESSION: 1. No acute findings of the lumbar spine. 2. Mild to moderate lumbar spondylosis, most significant at L4 through S1 Electronically signed by: Lewis Mendoza MD 11/12/2024 11:30 AM EDT
[2024-11-12 13:59] LABS: Appearance Urine Clear; Glucose Urine UA Negative (Negative); PH 6.0 (5.0-9.0); Specific Gravity - Urine 1.020 (1.005-1.025)
== END 2024-11-12 09:00 | disposition home or self-care (01) ==
LOC: HO.HMGCX 08:59
PROVIDERS: PCP Internal Medicine; Visit Provider Internal Medicine
DX: Z23 Encounter for immunization (principal); Z00.00 Encounter for general adult medical examination without abnormal findings; I10 Essential (primary) hypertension; M54.50 Low back pain, unspecified; R32 Unspecified urinary incontinence; R25.1 Tremor, unspecified
CPT/HCPCS: 72100; 81001; 90471; 90677; 96127

== ENCOUNTER 2024-11-12 08:59 | Outpatient (AMB) | payer OTHER, SELFPAY ==
--- OUTSIDE RECORDS SUMMARY | 2023-09-14 06:45 | XMS_ITS ---
Author Organization [facility] Address [address] [place] [address] Care Team Providers Care Health Services Information Specialist Name Role Phone Maria Ines Estrada MD Primary Care Provider Unavaila ble Black, Kim Unavailable [phone] Ruthie Joaquin Unavailable [phone] REASON FOR VISIT Seen Sooner Encounters Encounter Location Date Provider Diagnosis [facility] [address] [place] [address] 09/14/2023 Ruthie Joaquin Plan Of Treatment No Information Progress Notes * Laura HERNÁNDEZ MDOB: [birth year] (68 yo F)Acc No.[id number]:09/14/2023 Progress Note Patient: Laura JEFFRIES Provider: Vickie Joaquin DPM :1955 A ge:67 Y S ex:Female Date:09/14/2023 Address:[address] [place] [address] [place], [id number] Pcp:Maria Ines Estrada MD Subjective: * Chief Complaints: * 1 . Seen Sooner. * Medical History: Objective: * Vitals: Assessment: Plan: * Treatment: * Images: * The named appointment provid er may or may not be the originator of this progress note, and it is not deemed complete until electronically signed by the appointment provider. Sign off status: Pending * Provider: Vickie Joaquin DPM Date: 0 09/14/2023 Generated for Barbara monroe/Marlon/Binduitting on: 0 11/12/2024 09:34 AM EDT
--- OUTSIDE RECORDS SUMMARY | 2024-09-06 04:00 | XMS_ITS ---
Author Organization [facility] Address [address] [place] [address] Care Team Providers Care Medical Scientist Name Role Phone Maria Ines Estrada MD Primary Care Provider Unavaila Kim Renner [phone] REASON FOR VISIT r/s for sooner apt Encounters Encounter Location Date Provider Diagnosis [facility] [address] [place] [address] 09/06/2024 Kim Mandujano Plan Of Treatment No Information Progress Notes * Laura HERNÁNDEZ MDOB: [birth year] (68 yo F)Acc No.[id number]:09/06/2024 Progress Note Patient: Mady REYNOLDS Laura Kauffman Provider: Mady Mandujano DPM :1955 A ge:68 Y S ex:Female Date:09/06/2024 Address:[address] [place] [address] [id number] Pcp:Maria Ines Estrada MD Subjective: * Chief Complaints: * 1 . R/s for sooner apt. * Medical History: Objective: * Vitals: Assessment: Plan: * Treatment: * Images: * The named appointment provid er may or may not be the originator of this progress note, and it is not deemed complete until electronically signed by the appointment provider. Sign off status: Pending * Provider: Mady Mandujano DPM Date: 0 09/06/2024 Generated for Printi ng/Faxing/eTransmitting on: 0 11/12/2024 09:33 AM EDT
[2024-11-12 09:03] VITALS: BP 124/76; PULSE 54; RESP 18; TEMP 36.9; O2SAT 96; BMI 25.3
--- NOTE | 2024-11-12 09:03 | MHC.PC.OV ---
Vital Signs 11/12/24 09:03 Height 5 ft 6 in Weight 157 lb BMI 25.3 BP 124/76 Blood Pressure Location Lt brachial Position Sitting Respiration 18 Pulse 54 Pulse Source Pulse Oximeter Temp 98.4 F Temp Source Oral Pulse Oximetry (%) 96 Oxygen Delivery Method Room Air Intake Visit Reasons: PE Intake Note: Pt is here today for PE. Allergies No Known Allergies Allergy (Verified 11/12/24 09:04) Medication List - Last Reconciled 11/12/24 by Maria Ines Estrada MD amlodipine 2.5 mg PO DAILY atorvastatin 10 mg PO DAILY levothyroxine 100 mcg PO DAILY [medical alert device with fall detection and GPS As directed] Tobacco use date assessed: 11/12/24 Fall risk assessment: No Falls in past year Last assessed Fall Risk: 11/12/24 Dental Screening Dental Screen Date: 11/12/24 Did you have a dental visit in the last 12 months?: Yes Did you have a dental problem in the last 6 months where you did not have access to dental care?: No Was dental information given to patient?: Patient has dentist HPI PE HPI Details Pt presents for PE. Pt c/o chronic lower back worse when sitting for a long time at work working on computer. Pt c/o R hand tremor getting worse when typing for the last few months. Patient denies any resting tremor or change in balance. PFSH Medical History (Updated 11/12/24 @ 09:33 by Maria Ines Estrada MD) Tremor Syncope Palpitations Knee pain, left Hyperlipidemia TIA (transient ischemic attack) GERD (gastroesophageal reflux disease) Mammogram normal Annual physical exam Postmenopausal bleeding Osteoarthritis of knee DJD (degenerative joint disease) IBS (irritable bowel syndrome) Insomnia Anxiety Hypothyroidism Surgical History (Updated 11/12/24 @ 09:26 by Maria Ines Estrada MD) H/O colonoscopy Cervical polyp History of breast biopsy Fistula Family History Father HTN (hypertension) Cancer Lung cancer Mother HTN (hypertension) CHF (congestive heart failure) Brother Cancer Brother No problems noted. Social History Housing: House Patient Tobacco Use Status: Former Tobacco user e-Cigarette/Vaping Use: Former Use service: No Current occupational status: employed Cognitive needs: No Hearing needs: No Vision needs: No Questionnaire PHQ-9 Over the last 2 weeks, how often have you been bothered by any of the following problems? 1. Little interest or pleasure in doing things: not at all 2. Feeling down, depressed, or hopeless: not at all 3. Trouble falling or staying asleep, or sleeping too much: several days 4. Feeling tired or having little energy: several days 5. Poor appetite or overeating: not at all 6. Feeling bad about yourself - or that you are a failure or have let yourself or your family down: not at all 7. Trouble concentrating on things, such as reading the newspaper or watching television: not at all 8. Moving or speaking so slowly that other people could have noticed. Or the opposite - being so fidgety or restless that you have been moving around a lot more than usual: not at all 9. Thoughts that you would be better off or of hurting yourself in some way: not at all Total score: 2 Depression Screening Interpretation: Negative Depression Screening Done: Yes 24635 - PHQ-9 Billing: Yes Source: Developed by Drs. Leonardo Medina, Sangita Chin, Zachary Benavides and colleagues, with an educational brice from [employer]. Thrive Questionnaire Date Thrive assessed: 11/12/24 I am a: Patient What is your living situation today?: I have a steady place to live Within the past 12 months, did the food you bought not last and you didn't have the money to get more?: Never true Within the past 12 months, did you worry whether your food would run out before you got money to buy more?: Never true Do you have trouble paying for medicines?: No Do you have trouble getting transportation to medical appointments?: No Do you have trouble paying your heating and electricity bill?: No Do you have trouble taking care of your child, family member or friend?: No Do you have trouble with day-to-day activities such as bathing, preparing meals, shopping, managing finances, etc.?: No Are you currently unemployed and looking for a job?: No Are you interested in more education?: No Please select the resources that you would like help with: None Currently or been in a relationship where the following occur: I choose not to answer THRIVE Score: 0 AUDIT C Alcohol Use Questionnaire (AUDIT-C) 1. How often do you have a drink containing alcohol?: 2-4 times a month 2. How many drinks containing alcohol do you have on a typical day when you are drinking?: 1 or 2 3. How often do you have six or more drinks on one occasion?: Never Total Score: 2 TELMA-7 AMB Questionnaire TELMA-7 Date TELMA - 7 assessed: 11/12/24 Feeling nervous, anxious, or on edge: 1 = Several days Not being able to stop or control worryin = Not at all Worrying too much about different things: 1 = Several days Trouble relaxin = Not at all Being so restless that it is hard to sit still: 0 = Not at all Becoming easily annoyed or irritable: 0 = Not at all Feeling afraid as if something awful might happen: 0 = Not at all Total TELMA-7 score (0-4 normal; 5-9 mild; 10-14 moderate; 15-21 severe): 2 Source: Developed by Drs. Leonardo Medina, Sangita Chin, Zachary Benavides and colleagues, with an educational brice from [employer]. TELMA-7 Assessment Billing TELMA-7 Assessment Tool: TELMA-7 Assessment 19727 Review of Systems Const All systems reviewed & are unremarkable except as noted in HPI and below Eyes Reports no additional complaints ENT Reports no additional complaints Card Reports no additional complaints Resp Reports no additional complaints GI Reports no additional complaints Reports no additional complaints Physical exam (Primary Care) Vital Signs: Last Vital Signs Temp 98.4 F 11/12/24 09:03 Pulse 54 11/12/24 09:03 Resp 18 11/12/24 09:03 BP 124/76 11/12/24 09:03 Pulse Ox 96 11/12/24 09:03 Oxygen Delivery Method Room Air 11/12/24 09:03 BMI result Body Mass Index 25.3 Tobacco/Smoking Status: Tobacco use Status Tobacco use date assessed 11/12/24 11/12/24 09:10 Patient Tobacco Use Status Former Tobacco user 11/12/24 09:03 e-Cigarette/Vaping Use Former Use 11/12/24 09:03 PHQ-9: PHQ-9 Score PHQ-9: Total score 2 11/12/24 09:47 Depression Screening Interpretation: Negative Thrive Assessment: Date of Thrive Assessment Date Thrive assessed 11/12/24 11/12/24 09:10 Currently or been in a relationship where the following occur: I choose not to answer Const General: no acute distress HENMT Head: Yes normal to inspection Ears: hearing grossly normal bilaterally Face and sinus: Yes normal facial exam Mouth: Normal oral and palatal mucosa present Throat: Yes posterior oropharynx normal Eyes General: appearance normal, both eyes and all related structures Neck Neck: Yes no lymphadenopathy and Yes supple Resp Effort & Inspection: normal respiratory effort Auscultation: clear to auscultation bilaterally Cardio Rhythm: regular rhythm Heart sounds: S1 normal heart sound present and S2 normal heart sound present GI Inspection: Yes normal to inspection Palpation (GI): Soft to palpation Percussion: Yes normal to percussion Auscultation: normal bowel sounds Back/Spine/Pelvis Other: Slightly decreased range of motion in the lumbar spine, paraspinal tenderness right more than left and mid lumbar region, straight leg rising 90 degrees bilaterally deep tendon reflexes 2+ bilaterally Neuro Other: Low amplitude tremor in her right hand when extending her hands Immunizations pneumoc 20-shyam conj-dip cr(PF) 0.5 mL IM syringe Performing Provider: Maria Ines Estrada MD [place] [facility] [facility] Administered by: THELMA Harris on 11/12/24 09:47 Dose Route Admin Location Dispensed Lot Number Expiration Date FLC Hot Man 0.5 mL IM Left Deltoid 0.5 mL [id number] 08/13/25 2237-8041-80 [employer] Total Dispensed Waste 0.5 mL 0 % VIS Given Date VIS Provided VIS Publication Date 11/12/24 Single Vaccine 24 Eligibility Eligibility Date Funding Source Not [facility] Eligible 11/12/24 Private Coding Level of Care Code Est Pt Prev Care >65y(83943) Diagnoses Annual physical exam Z00.00 HTN (hypertension) I10 Lower back pain M54.50 Incontinence in female R32 Tremor R25.1 Additional Codes TELMA-7 Assessment Billing - TELMA-7 Assessment Tool: TELMA-7 Assessment 83092 ([id number]) PHQ-9 - 26152 - PHQ-9 Billing: Yes ([id number]) Assessment & Plan Assessment & Plan (1) Annual physical exam: Code(s): Z00.00 - Encounter for general adult medical examination without abnormal findings Category: Medical Plan: well balanced diet, regular exercise, pt is up to date with mammogram, colonoscopy (2) HTN (hypertension): Code(s): I10 - Essential (primary) hypertension Category: Medical Plan: cont meds (3) Lower back pain: Code(s): M54.50 - Low back pain, unspecified Category: Medical Plan: check XR lumbar, pt declined PT, she will try home exercises (4) Incontinence in female: Code(s): R32 - Unspecified urinary incontinence Category: Medical Plan: For stress incontinence urinalysis will be check bladder scan will be obtained to rule out urinary retention, patient declined treatment with estradiol cream or anticholinergic meds (5) Tremor: Code(s): R25.1 - Tremor, unspecified Category: Medical Plan: For essential tremor patient will be referred to Neurology Orders: Orders UA w Microscopic Today I10 - Essential (primary) hypertension, Z00.00 - Encounter for general adult medical examination without abnormal findings Pneumococcal 20 Immunization Today Z23 - Encounter for immunization Lipid Panel 1 Year E03.9 - Hypothyroidism, unspecified, E55.9 - Vitamin D deficiency, unspecified, E78.5 - Hyperlipidemia, unspecified, F41.9 - Anxiety disorder, unspecified, I10 - Essential (primary) hypertension Vitamin D 25-OH Total 1 Year E03.9 - Hypothyroidism, unspecified, E55.9 - Vitamin D deficiency, unspecified, E78.5 - Hyperlipidemia, unspecified, F41.9 - Anxiety disorder, unspecified, I10 - Essential (primary) hypertension TSH reflex Free T4 1 Year E03.9 - Hypothyroidism, unspecified, E55.9 - Vitamin D deficiency, unspecified, E78.5 - Hyperlipidemia, unspecified, F41.9 - Anxiety disorder, unspecified, I10 - Essential (primary) hypertension XR lumbar spine 2-3V Today M54.50 - Low back pain, unspecified US bladder 1 Year E03.9 - Hypothyroidism, unspecified, E55.9 - Vitamin D deficiency, unspecified, E78.5 - Hyperlipidemia, unspecified, F41.9 - Anxiety disorder, unspecified, I10 - Essential (primary) hypertension, R32 - Unspecified urinary incontinence Comprehensive [place]. Panel Fast 1 Year E03.9 - Hypothyroidism, unspecified, E55.9 - Vitamin D deficiency, unspecified, E78.5 - Hyperlipidemia, unspecified, F41.9 - Anxiety disorder, unspecified, I10 - Essential (primary) hypertension Complete Blood Count Auto Diff 1 Year E03.9 - Hypothyroidism, unspecified, E55.9 - Vitamin D deficiency, unspecified, E78.5 - Hyperlipidemia, unspecified, F41.9 - Anxiety disorder, unspecified, I10 - Essential (primary) hypertension UA w Microscopic 1 Year E03.9 - Hypothyroidism, unspecified, E55.9 - Vitamin D deficiency, unspecified, E78.5 - Hyperlipidemia, unspecified, F41.9 - Anxiety disorder, unspecified, I10 - Essential (primary) hypertension Referrals Neurology Referral R25.1 - Tremor, unspecified
--- OUTSIDE RECORDS SUMMARY | 2024-11-12 09:34 | XMS_ITS | Clinical Summary ---
Author Organization [facility] Address [address] [facility] [address] [place] [address] Phone Care Team Providers Care Cut Off Sawyer Name Role Phone Maria Ines Estrada MD Primary Care Provider [phone] Allergies Active Allergy Reactions Criticality Noted Date [...] 8:20 AM EDT Office Visit [facility] [address] [place] [address] [place] [address] Geeta Espino MD [address] [place] [address] [email or web address] Maintenance Due Date Last Done Comments [...] EDT) TSH 1.17 0.27 - 4.20 uIU/mL [facility] Blood 05/09/2024 9:52 AM EDT 05/09/2024 9:56 AM EDT Geeta Espino MD LAB BLOOD ORDERABLES F inal Result Performing Organization Address City/[facility]/ZIP Co de Phone Number [address] [address] * (ABNORMAL) Lipid panel (05/09/2024 9:52 AM EDT) HDL 77 mg/dL [facility] Comment: Interpretation <40 mg/dL: Low HDL cholesterol (major risk factor for CHD) Greater than or equal to 60 mg/dL: High HDL cholesterol ( negative risk factor for CHD) HDL - cholesterol is affected by a number of factors, e.g. smoking, excerise, hormones, sex and age. CHOLESTEROL 194 0 - 240 mg/dL [facility] TRIGLYCERIDES 71 30 - 160 mg/dL [facility] LDL 103 50 - 129 mg/dL [facility] Comment: LDL levels in terms of risk for coronary heart disease: <100 mg/dL: Optimal 100-129 mg/dL: Near or above optimal 130-159 mg/dL: Borderline high 160-189 mg/dL: High >190 mg/dL: Very High CARDIAC RISK RATIO 2.5(L) 3.3 - 4.4 C [facility] Blood 05/09/2024 9:52 AM EDT 05/09/2024 9:56 AM EDT Geeta Espino MD LAB BLOOD ORDERABLES F inal Result Performing Organization Address City/[facility]/ZIP Co de Phone Number [address] [address] from Last 3 Months or Most Recently Relevant to Health Maintenance Insurance [facility] HMO [facility] HMO [facility] HMO [facility] HMO Care Teams Cut Off Sawyer Relationship Specialty Start Date End Date Maria Ines Estrada MD [address] [facility] [place] [address] PCP - General Internal Medicine 05/11/23 Additional Source Comments The information contained in this document represents components of the legal health record. It is not the complete legal health record.[facility]
--- OUTSIDE RECORDS SUMMARY | 2024-11-12 09:34 | XMS_ITS | Patient Health Record ---
Author Organization [facility] [place] Address [address] [facility] [place] [address] Care Team Providers Care Bulb Filler Name Role Phone Maria Ines Estrada MD Primary Care Provider Unavaila ble Kim Mandujano Unavailable [phone] Allergies Allergen (clinical drug ingredient) Drug/Non Drug [...] Problem Acquired hammer toe of right foot (3966446249126 105) Other hammer toe(s) (acquired), right foot (M20.41) Active confirmed Problem Arthritis (1366801) Arthritis (M19.90) Active confirmed Problem Acquired right hallux rigidus (2271290981673 00) Hallux limitus of right foot (M20.5X1) Active confirmed Problem Acquired hammer toe of right foot (7605330245374 105) Hammer toe of right foot (M20.41) Active confirmed Vital Signs Blood pressure diastolic 67 mm Hg 10/08/2024 Height 5ft6.5in in 10/08/2024 Blood pressure systolic 117 mm Hg 10/08/2024 Weight 153 lbs 10/08/2024 BMI 24.32 kg/m2 10/08/2024 Encounters Encounter Location Date Provider Diagnosis [facility] [address] 07/30/2024 Kim Black Pain in right foot M79.671 ; Hallux limitus of right foot M20.5X1 ; Pain in right ankle and joints of right foot M25.571 ; Bursitis of right foot M77.51 ; Hammer toe of right foot M20.41 ; Arthralgia of right foot M25.571 and Arthritis M19.[address] [facility] [address] 10/08/2024 Kim Black Pain in right foot [...] Insured Coverage Start Date Coverage End Date [facility] [address] [place] [address] [id number] Laura Hernández Self - patient is the insured Medical (General) History Medical History History ICD Code Anxiety High blood pressure Lyme disease Neuropathy Osteoporosis thyroid Warts Measles Surgical History Surgery Date(Month/Year)
== END 2024-11-12 12:00 | disposition home or self-care (01) ==
LOC: HO.HMCC 09:00
PROVIDERS: PCP Internal Medicine; Visit Provider Internal Medicine
DX: Z00.00 Encounter for general adult medical examination without abnormal findings (principal); I10 Essential (primary) hypertension; M54.50 Low back pain, unspecified; R32 Unspecified urinary incontinence; R25.1 Tremor, unspecified; Z23 Encounter for immunization

== ENCOUNTER → 2024-11-12 09:55 | Outpatient (BNV) | payer OTHER, SELFPAY | PROVIDERS: PCP Internal Medicine; Visit Provider Radiology Diagnostic Radiology | DX: M47.817 Spondylosis without myelopathy or radiculopathy, lumbosacral region (principal) | CPT/HCPCS: 72100 ==

== ENCOUNTER 2025-01-09 11:20 | Outpatient (REF) | payer OTHER, SELFPAY ==
[2025-01-09 13:12] LABS: MANUAL DIFF FLAG NO
[2025-01-09 13:19] LABS: Hematocrit 42.6 % (37.0-47.0); Hemoglobin 13.5 g/dl (12.0-16.0); Imm Gran Abs Auto 0.00 X10*3/uL (0.00-0.03); Imm Gran Pct Auto 0.0 % (0.0-0.4); Lymphocytes Absolute Auto 1.9 X10*3/uL (1.2-4.9); Mean Corpuscular HGB Conc 31.7 g/dl (31.0-35.0); Mean Corpuscular Hemoglobin 29.6 pg (27.0-33.0); Mean Corpuscular Volume 93.4 fL (80.0-98.0); NRBC Abs Auto 0.000 X10*3/uL (0.0-0.012); NRBC Pct Auto 0.0 /100WBC (0.0-0.2); Platelet Count 226 X10*3/uL (160-400); Red Blood Count 4.56 X10*6/uL (4.20-5.50); White Blood Count 4.5 X10*3/uL (4.8-10.8)
[2025-01-09 13:38] LABS: Anion Gap 12 (12-20); Blood Urea Nitrogen 17 mg/dL (9-16); Calcium 9.1 mg/dL (8.4-10.2); Carbon Dioxide 27 mmol/L (22-29); Chloride 107 mmol/L (96-108); Estimated Glomerular Filt Rate > 60; Magnesium 2.1 mg/dL (1.6-2.6); Potassium 4.1 mmol/L (3.3-5.1); Sodium 142 mmol/L (135-145)
--- OUTSIDE RECORDS SUMMARY | 2025-01-09 14:09 | XMS_ITS | Clinical Summary ---
Author Organization [facility] Address [address] [place] [address] Care Team Providers Care Route Sales Driver Name Role Phone Maria Ines Estrada MD Primary Care Provider [phone] Medications amLODIPine (NORVASC) 5 mg tablet Take 0.5 tablets (2.5 mg total) by mouth 1 (one) time each day. 3 Active levothyroxine (SYNTHROID, LEVOTHROID) 100 mcg tablet Take 1 tablet (100 mcg total) by mouth. 100mcg 6 days a week and the 7th day take 50 mcg Active atorvastatin (LIPITOR) 10 mg tablet Take 0.5 tablets (5 mg total) by mouth at bedtime. Active atorvastatin (LIPITOR) 20 mg tablet Take 5 mg by mouth 1 (one) time each day. 01/08/20 25 Discontinu ed(Dose adjustment ) Encounters Date Type Department Care Team Description 01/07/2025 Telephone [facility] [address] [facility] [address] [place] [address] Milton Neil MD from Last 3 Months Surgical History Surgery Date Site/Laterality Comments BREAST BIOPSY PROCEDURE: BX BREAST; PERC NEEDLE CORE W/IMAG GUID OTHER SURGICAL HISTORY 2016 PROCEDURE: ---- OTHER ----; COMMENT: anal fistulotomy and ceton placement Medical History Medical History Date Comments Insomnia 12/09/2017 DX:Insomnia History of Lyme disease 12/09/2017 DX:Histo ry of Lyme disease Anal fistula 04/06/2017 DX:Anal fistula Atherosclerosis of aorta (CMS/HCC V24) 7 DX:Atherosclerosis of aorta (HCC); COMMENT: Comments: of abdominal aorta on MRI 2017of vertebral arteries on MRA 2005 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 DX:Breast hypo plasia Depression with anxiety 12/13/2016 DX:Depre ssion with anxiety Esophageal reflux 08/11/2012 DX:Esophageal reflux Hypercholesterolemia 12/13/2016 DX:Hypercho lesterolemia Hypertension 05/17/2016 DX:Hypertension Irritable bowel syndrome 03/18/2017 DX:Irri table bowel syndrome Rosacea 08/05/2009 DX:Rosacea Hypothyroidism 12/13/2016 DX:Hypothyroidis m Anxiety DX:Anxiety History of varicose veins DX:His tory of varicose veins Ecchymosis 02/05/2022 DX:Ecchymosis Family History Medical History Relation Name Comments Esophageal cancer Brother 1 Hypertension Brother 2 Hypertension Father Lung cancer Father Other cancer Father Coronary artery disease Maternal Grandfather Coronary artery disease Maternal Grandmother Coronary artery disease Mother HTN Coronary artery disease Paternal Grandfather Coronary artery disease Paternal Grandmother Relation Name Status Comments Brother 1 Brother 2 Alive Father Maternal Grandfather Maternal Grandmother Mother Paternal Grandfather Paternal Grandmother Social History Tobacco Use Types Packs/Day Years Used Date Smoking Tobacco: Some Days Cigarettes 0 Last attempted to quit: 02/14/2015 Smokeless Tobacco: Never Alcohol Use Standard Drinks/Week Comments Yes 7 (1 standard drink = 0.6 oz pur e alcohol) Comments Unknown Sex and Gender Information Value Date Recorded Sex Assigned at Not on file Legal Sex Female 8:38 AM EST Gender Identity Not on file Sexual Orientation Not on file Obstetrics History Last Filed Vital Signs Vital Sign Reading Time Taken Comments Blood Pressure 140/96 09/27/2023 1:39 PM EDT Pulse 58 09/27/2023 1:39 PM EDT Temperature - - Respiratory Rate - - Oxygen Saturation - - Inhaled Oxygen Concentration - - Weight 69.4 kg (153 lb) 09/27/2023 1:39 PM EDT Height 169.2 cm (5' 6.6 ) 09/27/2023 1:39 PM EDT Body Mass Index 24.25 09/27/2023 1:39 PM EDT Plan of Treatment Health Maintenance Due Date Last Done Comments Breast Cancer Screening 1955 Colorectal Cancer Screening: Colonoscopy 1955 Pneumococcal Vaccine: 50+ Ye ars (1 of 2 - PCV) 11/23/1974 Zoster Vaccines (1 of 2) 11/23/2005 DTaP,Tdap,and Td Vaccines (2 - Td or Tdap) 01/02/2022 01/03/2012 Cholesterol Screening (Lipid Panel) 01/13/2022 Falls Risk Assessment 01/13/2022 Hepatitis C Screening 01/13/2022 Osteoporosis Screening (Bone Density Screening) 01/13/2022 Social Influencers of Health Screening 01/13/2022 Hypertension/CHF/CAD Annual BMP Blood Test 01/28/2022 Depression Screening 02/15/2024 COVID-19 Vaccine (1 - 2024-2 6 season) 2024 Influenza Vaccine (#1) 2024 02/09/2018 RSV Immunization Adult Patie nts (1 - 1-dose 75+ series) 11/23/2030 HIB Vaccines Aged Out No longer eligi ble based on patient's age to complete this topic HPV Vaccines Aged Out No longer eligi ble based on patient's age to complete this topic Hepatitis A Vaccines Aged Out No long er eligible based on patient's age to complete this topic Hepatitis B Vaccines Aged Out No long er eligible based on patient's age to complete this topic IPV Vaccines Aged Out No longer eligi ble based on patient's age to complete this topic MMR Vaccines Aged Out No longer eligi ble based on patient's age to complete this topic Meningococcal ACWY Vaccine Aged Out N o longer eligible based on patient's age to complete this topic Meningococcal B Vaccine Aged Out No l onger eligible based on patient's age to complete this topic RSV Immunization Patients Un won 20 months Aged Out No longer eligible b ased on patient's age to complete this topic Varicella Vaccines Aged Out No longer eligible based on patient's age to complete this topic Advance Directives Documents on File Type Date Recorded Patient Windshield Installer Expl anation Health Care Decision (hx) 11/11/2011 AD SOW DIRECTIVE Health Care Decision (hx) 11/11/2011 AD SOW DIRECTIVE Health Care Decision (hx) 11/11/2011 AD SOW DIRECTIVE Health Care Decision (hx) 11/11/2011 AD SOW DIRECTIVE Care Teams Route Sales Driver Relationship Specialty Start Date End Date Maria Ines Estrada MD PCP - General Internal Medicine 01/22/21
--- OUTSIDE RECORDS SUMMARY | 2025-01-09 14:09 | XMS_ITS | Clinical Summary ---
Author Organization [facility] Address [address] [facility] [address] [place] [address] Phone Care Team Providers Care Formula Maker Name Role Phone Maria Ines Estrada MD Primary Care Provider [phone] Allergies Active Allergy Reactions Criticality Noted Date [...] 8:20 AM EDT Office Visit [facility] [address] [place] [address] [place] [address] Geeta Espino MD [address] [place] [address] [email or web address] Health Maintenance Due Date Last Done Comments [...] VACCINE (#1) 2024 COVID-19 VACCINE (1 - 2024-2 6 season) 2024 TSH LEVEL 05/09/2025 05/09/2024, 05/11/2023 [...] 9:52 AM EDT Hyperlipidemia, unspecified hyperlipidemia type THYROID STIMULATING HORMONE (TSH) Routine 05/09/2024 9:52 AM EDT 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 from Last 3 Months or Most Recently Relevant to Health Maintenance Results * TSH (05/09/2024 9:52 AM EDT) TSH 1.17 0.27 - 4.20 uIU/mL [facility] Blood 05/09/2024 9:52 AM EDT 05/09/2024 9:56 AM EDT Geeta Espino MD LAB BLOOD BKR ORDERABL ES Final Result Performing Organization Address City/[facility]/ZIP Co de Phone Number [address] [address] * (ABNORMAL) Lipid panel (05/09/2024 9:52 AM EDT) HDL 77 mg/dL [facility] Comment: Interpretation <40 mg/dL: Low HDL cholesterol (major risk factor for CHD) Greater than or equal to 60 mg/dL: High HDL cholesterol ( negative risk factor for CHD) HDL - cholesterol is affected by a number of factors, e.g. smoking, excerise, hormones, sex and age. CHOLESTEROL 194 0 - 240 mg/dL [facility] TRIGLYCERIDES 71 30 - 160 mg/dL [facility] LDL 103 50 - 129 mg/dL [facility] Comment: LDL levels in terms of risk for coronary heart disease: <100 mg/dL: Optimal 100-129 mg/dL: Near or above optimal 130-159 mg/dL: Borderline high 160-189 mg/dL: High >190 mg/dL: Very High CARDIAC RISK RATIO 2.5(L) 3.3 - 4.4 C [facility] Blood 05/09/2024 9:52 AM EDT 05/09/2024 9:56 AM EDT Geeta Espino MD LAB BLOOD BKR ORDERABL ES Final Result Performing Organization Address City/[facility]/ZIP Co de Phone Number [address] [address] from Last 3 Months or Most Recently Relevant to Health Maintenance [facility] Member Subscriber Plan / Payer (Ef fective 2020-Present) Name:Laura Hernández Relation to Subscriber:Self Name:Laura Hernández Payer ID:Not on file Type:O Address: [place] [id number] Care Teams Formula Maker Relationship Specialty Start Date End Date Maria Ines Estrada MD [address] [facility] [place] [address] PCP - General Internal Medicine 05/11/23 Additional Source Comments The information contained in this document represents components of the legal health record. It is not the complete legal health record.[facility]
--- OUTSIDE RECORDS SUMMARY | 2025-01-09 14:09 | XMS_ITS | Encounter Summary ---
Author Organization [facility] Address [address] [place] [address] Care Team Providers Care Top And Seat Cover Fitter Name Role Phone Maria Ines Estrada MD Primary Care Provider [phone] Reason for Visit * Reason Onset Date Comments Loss of Consciousness 01/07/2025 Encounter Details Date Type Department Care Team (Late st Contact Info) Description 01/07/2025 Telephone [facility] [address] [facility] [address] [place] [phone] Milton Neil MD [address] [place] [address] [place] [phone] Social History Tobacco Use Types Packs/Day Years [...] on file Sexual Orientation Not on file documented as of this encounter Progress Notes * Libia Andrea RN - 01/08/2025 4:30 PM EST Spoke with pt reviewed LM recommendations Pt will go to [facility] for lab work FAX [phone] FAX successfully sent * Evon Smith - 01/08/2025 4:13 PM EST Patient is returning your call. * Ange Coe RN - 01/08/2025 9:46 AM EST Left voicemail for patient to call back. * CLEVELAND Birch - 01/08/2025 9:27 AM EST Please have her update CBC, basic metabolic panel, magnesium at lab of her choice Encourage hydration, consume small amount of salt, avoid prolonged sitting and standing prior to getting up move arms and legs, suggest knee-high compression stockings if she has not been wearing them * Yaw Zuluaga RN - 01/07/2025 4:48 PM EST Hx of vasovagal syncope. Called pt this PM states That on Tuesday she had an unwitnessed passing out episode in her BR. Shehad been nauseous at the time and in the past has nearly passed out with nausea so she was able to lower herself to her knees before going unconscious, Does not know if she hit her head. States it started early in the AM on Tuesday and she was in bed, woke up with tingling in her legs/nausea and she did not feel right. She went back to sleep and then woke up again a couple of hours later with nausea - decided to use her emergency push button call system to call EMS and got up to unlock the door for them. Went from the door to the bathroom (did not use the facilities yet) and that is where she passed out. States no CP/SOB. Does admit that she hardly had any water that day and wasdefinitely dehydrated. Was told by EMS when they came to assess her that her VSS were stable so shedismissed going to the ER. Was told to f/u with PCP. She did not f/u with PCP as she does not trusther PCP. I have made her aware she needs to establish a PCP provider. BP/HR today 146/82 HR 53. Hasnever been able to get BP/HR when symptomatic with nausea. Has stress at her job and anxiety. I have asked her to stay hydrated and for any repeated episodes is to call 911 and go to the ER. Med module updated. No new meds except over the counter Calcium 600mg and Dit D-3. Started Vit C 2 days ago. States she does not remember if this episode was similar to the one she had last year in October when she had a low BP/JAIMES and nausea - was noted it could have been possibly something viral. JEN 09/27/[address] Neil. * Anny Oseguera - 01/07/2025 4:03 PM EST Patient called and stated that on Friday 01/05 she was feeling anxious before going to bed at 2:30am and at 4:40 am she felt legs tingling and felt nauseous. She said she stood up and passed out, EMT and police arrived her blood pressure was 150/95 and oxygen was 98. Please call patient. documented in this encounter Plan of Treatment Scheduled Orders Name Type Priority Associated Diagnoses Orde r Schedule Basic metabolic panel Lab Routine Syncope, unspecified syncope type Shortness of breath 1 Occurrences starting 01/08/2025 until 01/08/2026 Magnesium Lab Routine Syncope, unspecified syncope type Shortness of breath 1 Occurrences starting 01/08/2025 until 01/08/2026 CBC and differential Lab Routine Syncope, unspecified syncope type Shortness of breath 1 Occurrences starting 01/08/2025 until 01/08/2026 documented as of this encounter Visit Diagnoses Diagnosis Syncope, unspecified syncope type- Primary Shortness of breath documented in this encounter Discontinued Medications Medication Sig Discontinue Reason Start Date End Da te atorvastatin (LIPITOR) 20 mg tablet Take 5 mg by mouth 1 (one) time each day. Dose adjustment 01/07/2025 documented as of this encounter Historical Medications * This list may reflect changes made after this encounter. atorvastatin (LIPITOR) 10 mg tablet Take 0.5 tablets (5 mg total) by mouth at bedtime. levothyroxine (SYNTHROID, LEVOTHROID) 100 mcg tablet Take 1 tablet (100 mcg total) by mouth. 100mcg 6 days a week and the 7th day take 50 mcg amLODIPine (NORVASC) 5 mg tablet Take 0.5 tablets (2.5 mg total) by mouth 1 (one) time each day. 08/21/2022 atorvastatin (LIPITOR) 20 mg tablet Take 5 mg by mouth 1 (one) time each day. 01/07/2025 added in this encounter Care Teams Top And Seat Cover Fitter Relationship Specialty Start Date End Date Maria Ines Estrada MD PCP - General Internal Medicine 01/22/21 documented as of this encounter
--- OUTSIDE RECORDS SUMMARY | 2025-01-09 14:09 | XMS_ITS ---
Author Name [facility] Unknown History of Medication Use Medication Directions Dispensed Refills Start Date End Date Stat us fluticasone propionate 2024 active amlodipine besylate 10/15/2024 a ctive atorvastatin calcium 11/28/2023 active Synthroid 07/29/2023 active Encounters Encounter Type Encounter Reason Primary Diagnosis Location Date Ambulatory TBE Acute serous radha tis media, bilateral [facility] 2024 Care Team Organization Name Specialty Phone Email Start Date End Da te [facility] 11/28/2024 [facility] 2024
== END 2025-01-09 11:21 | disposition home or self-care (01) ==
LOC: HO.HMGCLDS 11:20
PROVIDERS: PCP Internal Medicine; Visit Provider Physician Assistant
DX: R06.02 Shortness of breath (principal); R55 Syncope and collapse
CPT/HCPCS: 36415; 80048; 83735; 85025